=== PATIENT | male | born 1935 | race Caucasian/White ===

== ENCOUNTER 2016-07-09 | Outpatient (CLI) | payer MEDICARE | END 2016-07-09 09:35 | disposition critical access hospital (66) | CPT/HCPCS: A0425; A0429 ==

== ENCOUNTER 2016-07-09 09:43 | Emergency (ER) | payer MEDICARE ==
[2016-07-09] MEDS ORDERED: SODIUM CHLORIDE 0.9% 1,000 ML IV ONE ×2 (10:06)
== END 2016-07-09 15:01 | disposition home or self-care (01) ==
DX: J18.9 Pneumonia, unspecified organism (principal); Z79.899 Other long term (current) drug therapy; Z92.21 Personal history of antineoplastic chemotherapy; C83.30 Diffuse large B-cell lymphoma, unspecified site

== ENCOUNTER 2016-07-09 16:09 | Inpatient (IN) | payer MEDICARE ==
--- NOTE | 2016-07-09 16:15 | ED Physician Documentation ---
PD HPI FEVER - Stated complaint Stated Complaint: SOA - History obtained from History obtained from: Patient, Family - History of Present Illness Timing - onset: Last night Timing duration: Days (1) Timing details: Gradual onset Pain level max: 0 Pain level now: 0 Associated symptoms: Chills Similar symptoms before: Diagnosis (pneumonia) Recently seen: Emergency Dept (seen here earlier today for same.) - Additional information Additional information: states felt more short of breath today after going for his outpatient CT. Family and patient had declined admission earlier today, now agree to admission. Review of Systems Ten Systems: 10 systems reviewed and negative Constitutional: reports: Fever Nose: denies: Rhinorrhea / runny nose, Congestion Throat: denies: Sore throat Cardiac: denies: Chest pain / pressure GI: denies: Abdominal Pain, Nausea, Vomiting, Diarrhea Skin: denies: Rash Musculoskeletal: denies: Neck pain, Back pain Neurologic: denies: Headache PD PAST MEDICAL HISTORY - Past Medical History Past Medical History: Yes Cardiovascular: Atrial fibrillation Respiratory: Other Neuro: None Endocrine/Autoimmune: None GI: None : None HEENT: Chronic hearing loss Psych: None Musculoskeletal: None Derm: None - Past Surgical History Past Surgical History: No General: Colonoscopy HEENT: Cataracts - Present Medications Home Medications: Ambulatory Orders Medication Instructions Recorded Confirmed Cholecalciferol (Vitamin D3) 2,000 unit ORAL DAILY 04/17/14 07/09/16 [Vitamin D] Magnesium 100 mg ORAL BID 04/17/14 07/09/16 Multivitamin [Multivitamins] 1 each PO DAILY 04/17/14 07/09/16 Prednisone 40 mg PO DAILY 05/21/16 07/09/16 Apixaban [Eliquis] 2.5 mg PO BID 07/09/16 07/09/16 - Allergies Allergies/Adverse Reactions: Allergies Allergy/AdvReac Type Severity Reaction Status Date / Time No Known Drug Allergies Allergy Verified 07/09/16 10:03 - Social History Does the pt smoke?: No Smoking Status: Never smoker Does the pt drink ETOH?: Yes Does the pt have substance abuse?: No - Immunizations Immunizations are current?: Yes - POLST Patient has POLST: No PD ED PE NORMAL - Vitals Vital signs reviewed: Yes - General General: Alert and oriented X 3, No acute distress - HEENT HEENT: Moist mucous membranes - Neck Neck: Supple, no meningeal sign - Cardiac Cardiac: Strong equal pulses, Other (tachycardic) - Respiratory Respiratory: No respiratory distress, Other (dimished BS R lung) - Abdomen Abdomen: Soft, Non tender - Back Back: No spinal TTP - Derm Derm: Warm and dry, No rash - Extremities Extremities: No calf tenderness / cord - Neuro Neuro: Alert and oriented X 3 - Psych Psych: Normal mood, Normal affect Results - Vitals Vitals: Vital Signs - 24 hr 07/09/16 07/09/16 07/09/16 16:24 16:40 16:57 Temperature 36.2 C L Heart Rate 149 H 160 H Respiratory 24 30 H Rate Blood Pressure 114/92 H 158/93 H O2 Saturation 83 L 90 L Oxygen O2 Source Non-rebreather mask Oxygen Flow Rate 15 PD MEDICAL DECISION MAKING - ED course Complexity details: reviewed old records, reviewed results, re-evaluated patient , considered differential, d/w patient, d/w family, d/w access consultant ED course: Patient presents to the emergency department with pneumonia and apparent sepsis. He appears significantly worse than he did a few hours ago in the emergency department. He was given IV fluids and supplemental oxygen here. He is normally on 4 L of O2. Consulted the hospitalist and accepts for admission, Dr. Haskins. This document was made in part using voice recognition software. While efforts are made to proofread this document, sound alike and grammatical errors may occur. Departure - Departure Disposition: 66 [facility] DC/Xfer Clinical Impression: Hypoxia Fever Qualifiers: Fever type: unspecified Qualified Code(s): R50.9 - Fever, unspecified Pneumonia Qualifiers: Pneumonia type: due to unspecified organism Laterality: right Lung location: unspecified part of lung Qualified Code(s): J18.9 - Pneumonia, unspecified organism Sepsis Qualifiers: Sepsis type: sepsis due to unspecified organism Qualified Code(s): A41.9 - Sepsis, unspecified organism Condition: Stable Discharge Date/Time: 07/09/16 17:41
[2016-07-09] MEDS ORDERED: SODIUM CHLORIDE 0.9% 1,000 ML IV ONE ×2 (16:16)
[2016-07-09] MEDS ORDERED: LORazepam 2 MG/ML SYRINGE IVP STA (16:39)
[2016-07-09] MEDS ORDERED: LORazepam 2 MG/ML SYRINGE ONE (16:39)
[2016-07-09] MEDS ORDERED: MORPHINE 2 MG/ML SYRINGE ONE (16:52)
[2016-07-09] MEDS ORDERED: MORPHINE 2 MG/ML SYRINGE IVP STA (16:52)
[2016-07-09] MEDS ORDERED: SODIUM CHLORIDE 0.9% 1,000 ML IV SCH (18:00)
[2016-07-09] MEDS ORDERED: ACETAMINOPHEN 325 MG TABLET PO PRN (18:52)
[2016-07-09 18:55] LABS: ABG ANALYSIS TIME 1843; ABG BASE EXCESS 1.5 mmol/L (-2.0-3.0); ABG HCO3 25.8 mmol/L (22.0-26.0); ABG PCO2 40 mmHg (34-45); ABG PH 7.43 (7.35-7.45); ABG PO2 59 mmHg (80-100)
[2016-07-09 18:56] LABS: ABG O2 DEVICE OXYMASK; ABG OXYGEN SATURATION 91 % (94-98); ABG SITE OF DRAW RIGHT RADIAL; ALLEN TEST POSITIVE
[2016-07-09] MEDS ORDERED: VANCOMYCIN WEIGHT BASED (PHA COMPOUNDING) IV SCH (19:00)
[2016-07-09] MEDS ORDERED: FUROSEMIDE 20 MG/2 ML VIAL IVP ONE (19:00)
[2016-07-09] MEDS ORDERED: AZITHROMYCIN INJ 500 MG in SODIUM CHLORIDE 0.9% 250 ML IV SCH (19:00)
[2016-07-09 19:04] LABS: INR 1.3 (0.8-1.2); PT - PROTHROMBIN TIME 14.5 secs (9.9-12.6)
[2016-07-09 19:24] LABS: BASOPHILS % (AUTO) 1.1 %; EOSINOPHILS % (AUTO) 0.3 %; HCT - HEMATOCRIT 33.3 % (42.0-52.0); HGB - HEMOGLOBIN 11.3 g/dL (14.0-18.0); LYMPHOCYTES % (AUTO) 1.3 %; MEAN CORPUSCULAR HEMOGLOBIN 34.7 pg (27.0-31.0); MEAN CORPUSCULAR HGB CONC 34.1 g/dL (32.0-36.0); MONOCYTES % (AUTO) 1.7 %; NEUTROPHILS % (AUTO) 95.6 %; RED BLOOD COUNT 3.26 10^6/uL (4.70-6.10); RED CELL DISTRIBUTION WIDTH 15.9 % (12.0-15.0); UNCORRECTED WHITE BLOOD COUNT 12.5 x10^3/uL; WHITE BLOOD COUNT 12.5 x10^3/uL (4.8-10.8)
[2016-07-09] MEDS: VANCOMYCIN INJ 1 GM in SODIUM CHLORIDE 0.9% 250 ML IV SCH (19:31)
[2016-07-09] MEDS: MORPHINE 2 MG/ML SYRINGE IVP PRN (19:43)
--- NOTE | 2016-07-09 19:57 | XRAY Preliminary Report ---
Exam: XR Chest 1 View IMPRESSION: Worsening left-sided perihilar infiltrate. Otherwise no change. [facility] SITE ID: [id number]
--- NOTE | 2016-07-09 19:59 | XRAY Report ---
EXAM: CHEST RADIOGRAPHY EXAM DATE: 07/09/2016 07:12 PM. CLINICAL HISTORY: Hypoxia. COMPARISON: Today at 1041. TECHNIQUE: 1 view. FINDINGS: Lungs/Pleura: Stable widespread pulmonary infiltrates with pleural effusion on the right . Worsening diffuse left-sided pulmonary infiltrate. No pneumothorax. No left effusion. Mediastinum: Large heart. Other: Stable left subclavian central line. IMPRESSION: Worsening left-sided perihilar infiltrate. Otherwise no change. [facility] Referring Provider Line: [phone] SITE ID: [id number]
[2016-07-09 20:04] LABS: BUN - BLOOD UREA NITROGEN 13 mg/dL (6-20); CALCIUM 7.9 mg/dL (8.5-10.3); CARBON DIOXIDE - CO2 27 mmol/L (21-32); CHLORIDE 98 mmol/L (101-111); CREATININE 0.7 mg/dL (0.6-1.2); GFR - MDRD 108 (>89); GLUCOSE 150 mg/dL (70-100); SODIUM 135 mmol/L (135-145)
[2016-07-09 20:08] LABS: CALCIUM, IONIZED 1.06 mmol/L (1.15-1.33); VBG PH 7.392 (7.31-7.41)
[2016-07-09 20:17] LABS: BAND NEUTROPHILS % (MANUAL) 5 %; BASOPHILS % (MANUAL) 2 %; EOSINOPHILS % (MANUAL) 1 %; LYMPHOCYTES % (MANUAL) 3 %; NEUTROPHILS % (MANUAL) 85 %; TOTAL CELLS COUNTED 100
[2016-07-09 20:22] LABS: NP AUTO DIFFERENTIAL? YES; NP MAN DIFFERENTIAL? NO; PLATELET ESTIMATE, MANUAL NORMAL (130-450,000) (NORMAL)
[2016-07-09] MEDS ORDERED: diltiaZEM INJ 5 MG/ML VIAL IVP SCH (20:51)
[2016-07-09] MEDS ORDERED: SODIUM CHLORIDE 0.9% 500 ML IV ONE (20:51)
[2016-07-09] MEDS: methylPREDNISolone SUCCINATE 40 MG/ML VIAL IVP SCH (21:25)
[2016-07-09] MEDS: FAMOTIDINE 20 MG/50 ML 50 ML IV SCH (22:26)
[2016-07-09] MEDS: PIPERACILLIN/TAZOBACTAM 3.375 GM in SODIUM CHLORIDE 0.9% MINIBAG 100 ML IV SCH (22:26)
[2016-07-09] MEDS: SODIUM CHLORIDE FLUSH 0.9% 10 ML SYRINGE IVP SCH (22:27)
[2016-07-10] MEDS: MORPHINE 2 MG/ML SYRINGE IVP PRN ×6 (00:01→18:11)
[2016-07-10] MEDS: VANCOMYCIN INJ 1 GM in SODIUM CHLORIDE 0.9% 250 ML IV SCH ×3 (02:48→18:11)
[2016-07-10] MEDS: PIPERACILLIN/TAZOBACTAM 3.375 GM in SODIUM CHLORIDE 0.9% MINIBAG 100 ML IV SCH ×4 (04:29→21:27)
--- NOTE | 2016-07-10 04:36 | HISTORY & PHYSICAL EXAMINATION ---
DATE OF ADMISSION: 07/09/2016 CODE STATUS: THE PATIENT IS A DNR STATUS. ALLERGIES: NO KNOWN DRUG ALLERGIES. is by his bedside. Information is obtained from previous H and P and his records and minimally from the patient and , as the patient is an extremist and both and the patient are extremely anxious. HISTORY OF PRESENT ILLNESS: The patient presented into the emergency room earlier today with a history of shortness of air. Onset was acutely yesterday evening, but had had gradual onset for a couple of days. The patient has associated chills. The patient was seen in the emergency room earlier in the day for similar symptoms. He was placed on Levaquin orally and was going to be getting a chest CT as an outpatient and could not tolerate it. As soon as he lied flat, he had acute onset of shortness of air and could not tolerate being flat. He then presented back to the emergency room for similar. 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 The patient has a past medical history of irregular heart rate, shortness of air , chronic prednisone use, pulmonary fibrosis, lymphoma of his right lung. He also has a history of hypertension. FAMILY MEDICAL HISTORY: Positive for lung cancer. EMERGENCY ROOM COURSE: The patient received Ativan in the emergency room, as well as morphine for acute shortness of air. He presented with an O2 saturation of 83%, respiratory rate of 24, and a heart rate of 150 with a temperature of 36.2. He was placed on 6.5 liters and is currently on a 15 OxyMask with O2 saturation of 98% with a respiratory rate of 24. The patient has had a previous tap of his right lung, he states, which did relieve his breathing in the past. A discussion was held with the and the patient, as they have a living well and a POLST was signed. THE PATIENT IS A DNR WITH LIMITED INTERVENTIONS. He is agreeable to have another interventional radiology tap of his lung and being placed on BiPAP if need be. It is not clear whether he would want to be intubated or not. He does not want to have any artificial tube feedings. 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 The patient has been on chronic anticoagulation therapy, also with Eliquis. PAST SURGICAL HISTORY: Not relevant to this current visit. HOME MEDICATIONS 1. Multivitamin 1 daily. 2. Vitamin D 2000 mg daily. 3. Magnesium 200 mg take 100 oral twice a day. 4. Prednisone 40 mg daily. 5. Eliquis 2.5 mg p.o. daily. FAMILY MEDICAL HISTORY: Positive for stomach cancer. REVIEW OF SYSTEMS NEUROLOGICAL: The patient denies any headache. Does complain of feeling dizzy when questioned. CARDIOVASCULAR: Denies any heart palpitations or chest pain. PULMONARY: Acute shortness of air with anxiety. He states he has 2 techniques to try to breathe, which he is attempting. ENT: Denies any sore throat or rhinorrhea. The patient wears bilateral hearing aids. GASTROINTESTINAL: Denies any melena or hematemesis, abdominal discomfort. Denies any back pain or abdominal pain. MUSCULOSKELETAL: Denies any joint aches or pains. GENITOURINARY: Denies any dysuria. LABORATORY: Lactic acid from 5:20 this evening is 3.4. White blood cell count from 10:30 is 7.4, RBC 2.88, hemoglobin 10.2, hematocrit 29.3, MCV is 101.8, MCH is 35.2, MCHC 34.6, RDW is 15.9, platelets 161. Chemistry: Sodium 134, potassium 3.9, chloride 95, carbon dioxide 31, anion gap 8, BUN 11, creatinine 0.6, GFR is 129, glucose 113. Lactic acid 3.4. IMAGING: Chest x-ray from 11:00 this morning, reading: Increased diffuse patchy opacities in the right lung with small right-sided pleural effusion, persistent patchy opacities in the left perihilar station. While this may represent asymmetric pulmonary edema, an infectious process is concerning and cannot be excluded. The patient was evaluated in the emergency room by Dr. Gm Paez and was placed on oxygen and had Ativan and morphine IV and a liter of fluids wide open. In his notation, he states he appeared significantly worse than he did a few hours ago in the emergency department. His is normally on 4 liters of oxygen. The patient received a liter of fluids wide open in the ER. The patient' s blood pressure in the emergency room, the lowest was 114/92 with a heart rate of 150 and O2 saturation of 83%. SOCIAL HISTORY: The patient does not smoke. Denies ever smoking. He does drink alcohol and does not have a history of substance abuse. The patient states he did have 2 flu shots this year. PHYSICAL EXAMINATION: The patient is in moderate distress with accessory muscle use and rigors and tremors. The patient has a nonhumidified nonrebreather mask in use. He is making good eye contact. His face is florid. His skin is damp. He does not have any breath sounds in his right lung and limited breath sounds in his left lung at the mid lobe. Heart sounds are distant and tachycardic. No murmur is appreciated, tachycardic regular rate. The patient has a 1+ radial pulse. The patient has a rotund abdomen, bowel sounds positive. Abdomen is soft , nontender. There is trace pedal edema. Current vital signs as of 1630: Temperature is 36.2, heart rate 150, blood pressure 114/92, O2 saturation 83% on 6.5 liters per record initially in the emergency room. Current, per nurse, 98% on OxyMask at 15%, 24 respiratory rate, heart rate 108, blood pressure is 111/53. ASSESSMENT AND PLAN 1. Right-sided lymphoma. An interventional radiology thoracentesis has been ordered. A stat portable chest x-ray has been ordered. Consideration of a CTA was discussed with Dr. Paez. He considered ordering this, but the patient is unable to lie flat for this at this time. 2. Hypoxia, extreme. Discussion was held with the and the patient about the need for BiPAP should that occur. He agrees to BiPAP. He does not agree to intubation at this time, but may consider it if needed if he was unconscious. 3. Elevated lactic acid, history of fever in the past 24 hours. Pneumonia: CAP. With Sepsis. The patient will be started on vancomycin and Zosyn. He did have a dose of Levaquin in the emergency room. He will be continued on Solu-Medrol IV at 40. He will be given a dose of Lasix 40 mg IV now. His IV has been saline locked. He is to have a Leyva catheter. He has strict I and O. He will have ABGs, Xopenex nebs, and a repeat single view chest x-ray, as well as repeat CBC and BMP. 4. Atrial fibrillation with RVR up to 170's. The patient will be on Lovenox, will have an INR. His Eliquis will be held. He will also be placed on famotidine 20 IV b.i.d. Consideration of IV Diltiazem or metoprolol was discussed with Dr. Haskins. Response to lasix as well as labs, CXR are pending. Mary Armstrong MD to follow up and consider treatment for RVR. Consider: Possible PE, Pulm. edema, CHF. The patient will be closely monitored. The patient was discussed with Dr. Dionicio Haskins who agrees with the plan of care. The patient and his both do understand that he is in a critical situation and that we will work to try to make him feel more comfortable. He has morphine ordered q.2h. p.r.n. for anxiety. In the event the patient stabilizes in the morning, an echocardiogram will also be repeated. Vital signs are currently q.1h. until stable. A discussion was held in regard of possible need for intubation: history of pulmonary fibrosis, prognosis. Patient and family do not desire this at this time. JOB #: [id number] EXT JOB #:[id number] HERNAN
[2016-07-10] MEDS: SODIUM CHLORIDE FLUSH 0.9% 10 ML SYRINGE IVP SCH ×2 (06:14→16:25)
[2016-07-10] MEDS ORDERED: MAGNESIUM OXIDE 400 MG TABLET PO SCH (08:00)
--- NOTE | 2016-07-10 08:05 | PROVIDER PROGRESS NOTE ---
Hospitalist Cross-cover Note - Cross-Cover Note Cross-Cover Note: 07/09/15 20:00-22:00 At change of shift 1900 patient presented to me as hx of lymphoma and now with pneumonia seen as white out of right lung. Couldn't do the CT of chest since he can't lay flat. Admitted and started on abx, given lasix since BNP high and hypoxic with tachypnea. Once on the floor, had brisk urine output but not improving with sob. RN called me at 20:00 since he was now severely tachypneic , couldn't breath and pulse rate was 200 (known afib on anticoagulation). From 19:00 to now getting more and more sob. On exam, BP intially stable. Fast irregular heart rate. Guppy breathing on oxymask. 15 liters. couldn't lay flat on bed. Lungs with diffuse crackles. using accessory muscles to breath. BP was starting to drop from 130's systolic to high 90's. given 500 cc fluid bolus (since may have been overdiuresed) and then given diltiazem. Transferred to ICU from the floor. Once in ICU, rate down to 90's. Over the next 2 hours, serial exams done. Able to recline angle of bed more. No use of accessory muscles. Resp rate started at 30 and down to 22. Staying on oxymask 15 liters. Heart rate down to 102-110. still afib. Lungs still with crackles but less more scant sound from first time I examined him. CXR with worsening left perhilar infiltrate. A/P acute resp failure with hypoxia from afib with RVR, pneumonia, and hx of interstial lung fibrosis. Long talk with family. He is DNR and after consideration, DNI. Over 30 minutes of face to face time spent in direct patient care with over 2 hours of repeat exams and discussion witwh family.
[2016-07-10] MEDS: CHOLECALCIFEROL 1,000 UNIT TABLET PO SCH (08:26)
[2016-07-10] MEDS: FAMOTIDINE 20 MG/50 ML 50 ML IV SCH ×2 (08:27→20:27)
[2016-07-10] MEDS: ENOXAPARIN 40 MG/0.4 ML SYRINGE SUBQ SCH (08:27)
[2016-07-10] MEDS: MULTIVITAMIN TABLET PO SCH (08:27)
[2016-07-10] MEDS: POLYETHYLENE GLYCOL 3350 17 GM PACKET PO SCH (08:27)
[2016-07-10] MEDS: methylPREDNISolone SUCCINATE 40 MG/ML VIAL IVP SCH ×2 (09:00→20:27)
[2016-07-10 09:04] LABS: BILIRUBIN,TOTAL 0.9 mg/dL (0.2-1.0); BUN - BLOOD UREA NITROGEN 9 mg/dL (6-20); CALCIUM 8.1 mg/dL (8.5-10.3); CARBON DIOXIDE - CO2 27 mmol/L (21-32); CHLORIDE 98 mmol/L (101-111); CREATININE 0.6 mg/dL (0.6-1.2); GFR - MDRD 129 (>89); GLUCOSE 139 mg/dL (70-100); MAGNESIUM 1.8 mg/dL (1.7-2.8); PHOSPHORUS 3.2 mg/dL (2.5-4.6); POTASSIUM 3.9 mmol/L (3.5-5.0); SODIUM 134 mmol/L (135-145); TOTAL PROTEIN 5.7 g/dL (6.7-8.2)
[2016-07-10 09:17] LABS: CALCIUM, IONIZED 1.08 mmol/L (1.15-1.33); VBG PH 7.435 (7.31-7.41)
[2016-07-10] MEDS ORDERED: LORazepam 0.5 MG TABLET PO PRN (14:21)
[2016-07-10] MEDS ORDERED: diltiaZEM INJ 5 MG/ML VIAL IVP ONE (17:30)
[2016-07-10] MEDS ORDERED: guaiFENesin 600 MG TABLET PO ONE (17:30)
[2016-07-10] MEDS ORDERED: diltiaZEM 30 MG TABLET PO ONE (17:45)
[2016-07-10] MEDS ORDERED: cefTRIAXone 2 GM in SODIUM CHLORIDE 0.9% MINIBAG 100 ML IV SCH (18:00)
[2016-07-10] MEDS: guaiFENesin 600 MG TABLET PO SCH (21:01)
[2016-07-10] MEDS ORDERED: SODIUM CHLORIDE 0.9% 500 ML IV ONE (21:13)
[2016-07-10] MEDS ORDERED: SODIUM CHLORIDE INHALATION 3 ML NEB ONE (22:05)
[2016-07-10] MEDS: LEVALBUTEROL 1.25 MG INH PRN (22:10)
[2016-07-11] MEDS: METOPROLOL 5 MG/5 ML VIAL IVP PRN ×2 (00:01→20:53)
[2016-07-11] MEDS: LORazepam 2 MG/ML SYRINGE IVP PRN ×2 (00:01→02:05)
[2016-07-11] MEDS: APIXABAN 2.5 MG PO SCH ×2 (00:05→10:31)
[2016-07-11] MEDS: SODIUM CHLORIDE FLUSH 0.9% 10 ML SYRINGE IVP SCH ×4 (00:06→21:50)
[2016-07-11] MEDS ORDERED: HALOPERIDOL 5 MG/ML VIAL IM ONE ×2 (00:57→07:46)
[2016-07-11 01:42] LABS: ABG BASE EXCESS -8.9 mmol/L (-2.0-3.0); ABG HCO3 20.8 mmol/L (22.0-26.0); ABG PO2 62 mmHg (80-100); ABG SITE OF DRAW RIGHT RADIAL; ABG TCO2 22.8 MMOL/L (21.0-29.0); ALLEN TEST POSITIVE
[2016-07-11 01:43] LABS: ABG O2 DEVICE NON REBREATHER MASK
[2016-07-11 01:45] LABS: ABG OXYGEN SATURATION 84 % (94-98); ABG PCO2 65 mmHg (34-45); ABG PH 7.13 (7.35-7.45)
--- NOTE | 2016-07-11 01:47 | XRAY Preliminary Report ---
Exam: XR Chest 1 View IMPRESSION: Severe bilateral airspace opacities have progressed from compared the prior exam. Suspect increasing right effusion as well. [facility] SITE ID: [id number]
--- NOTE | 2016-07-11 01:49 | XRAY Report ---
EXAM: CHEST RADIOGRAPHY EXAM DATE: 07/11/2016 01:25 AM. CLINICAL HISTORY: Sudden shortness of breath, and hypoxia. COMPARISON: 07/09/2016, CT 05/14/2016. TECHNIQUE: 1 view. FINDINGS: Lungs/Pleura: Severe bilateral airspace opacities have progressed from compared the prior exam. Suspe ct increasing right effusion as well. No gross pneumothorax. Mediastinum: Grossly stable. No me stone shift. Heart obscured partially Other: None. IMPRESSION: Severe bilateral airspace opacities have progressed from compared the prior exam. Suspect increasing right effusion as well. [facility] Referring Provider Line: [phone] SITE ID: [id number]
[2016-07-11 02:50] LABS: BASOPHILS % (AUTO) 0.1 %; EOSINOPHILS % (AUTO) 0.3 %; HCT - HEMATOCRIT 29.8 % (42.0-52.0); LYMPHOCYTES # (AUTO) 0.2 10^3/uL (1.5-3.5); LYMPHOCYTES % (AUTO) 1.6 %; MEAN CORPUSCULAR HEMOGLOBIN 35.4 pg (27.0-31.0); MEAN CORPUSCULAR HGB CONC 33.6 g/dL (32.0-36.0); MEAN CORPUSCULAR VOLUME 105.2 fL (80.0-94.0); MEAN PLATELET VOLUME 9.5 fL (7.4-11.4); MONOCYTES # (AUTO) 0.5 10^3/uL (0.0-1.0); MONOCYTES % (AUTO) 3.8 %; NEUTROPHILS # (AUTO) 13.4 10^3/uL (1.5-6.6); NEUTROPHILS % (AUTO) 94.2 %; NUCLEATED RED BLOOD CELLS AUTO 0.1 /100WBC; RED BLOOD COUNT 2.84 10^6/uL (4.70-6.10); UNCORRECTED WHITE BLOOD COUNT 14.3 x10^3/uL; WHITE BLOOD COUNT 14.3 x10^3/uL (4.8-10.8)
[2016-07-11 02:55] LABS: MAGNESIUM 2.2 mg/dL (1.7-2.8); PHOSPHORUS 5.1 mg/dL (2.5-4.6)
[2016-07-11] MEDS: MORPHINE 2 MG/ML SYRINGE IVP PRN ×2 (03:13→06:23)
[2016-07-11 03:19] LABS: ALBUMIN/GLOBULIN RATIO 0.9 (1.0-2.2); BILIRUBIN,TOTAL 0.6 mg/dL (0.2-1.0); CALCIUM 8.4 mg/dL (8.5-10.3); CREATININE 0.9 mg/dL (0.6-1.2); POTASSIUM 4.3 mmol/L (3.5-5.0); TOTAL PROTEIN 6.3 g/dL (6.7-8.2)
[2016-07-11] MEDS: VANCOMYCIN INJ 1 GM in SODIUM CHLORIDE 0.9% 250 ML IV SCH ×3 (04:00→21:50)
[2016-07-11] MEDS: PIPERACILLIN/TAZOBACTAM 3.375 GM in SODIUM CHLORIDE 0.9% MINIBAG 100 ML IV SCH ×5 (04:06→21:27)
[2016-07-11 06:32] LABS: VBG BASE EXCESS 0.9 mmol/L (-2 - +2); VBG OXYGEN SATURATION 95.7 % (60-80); VBG PH 7.328 (7.31-7.41); VBG TOTAL CO2 29.1 mmol/L (24-29)
[2016-07-11 06:38] LABS: CALCIUM 8.5 mg/dL (8.5-10.3); CREATININE 0.8 mg/dL (0.6-1.2); POTASSIUM 3.9 mmol/L (3.5-5.0)
[2016-07-11] MEDS: MORPHINE 2 MG/ML SYRINGE IVP SCH ×8 (08:00→23:55)
[2016-07-11] MEDS ORDERED: HALOPERIDOL 5 MG/ML VIAL IVP ONE (08:10)
[2016-07-11] MEDS ORDERED: MORPHINE 2 MG/ML SYRINGE IVP STA (08:10)
[2016-07-11] MEDS ORDERED: FUROSEMIDE 40 MG/4 ML VIAL IVP STA (08:11)
[2016-07-11] MEDS: DIGOXIN 500 MCG/2 ML AMP IVP SCH (08:53)
[2016-07-11] MEDS: ENOXAPARIN 40 MG/0.4 ML SYRINGE SUBQ SCH (08:54)
[2016-07-11] MEDS: PANTOPRAZOLE 40 MG VIAL IVP SCH (08:54)
[2016-07-11] MEDS ORDERED: predniSONE 20 MG TABLET PO SCH (09:00)
[2016-07-11] MEDS: methylPREDNISolone SUCCINATE 40 MG/ML VIAL IVP SCH ×3 (09:06→20:17)
[2016-07-11] MEDS: CHLORHEXIDINE GLUCONATE 15 ML UDC PO SCH ×2 (10:28→20:17)
[2016-07-11] MEDS: POLYETHYLENE GLYCOL 3350 17 GM PACKET PO SCH (10:29)
[2016-07-11] MEDS: diltiaZEM CD 120 MG CAPSULE PO SCH (10:29)
[2016-07-11] MEDS: guaiFENesin 600 MG TABLET PO SCH ×2 (10:29→20:33)
[2016-07-11] MEDS: CHOLECALCIFEROL 1,000 UNIT TABLET PO SCH (10:29)
[2016-07-11] MEDS: SODIUM CHLORIDE FLUSH 0.9% 10 ML SYRINGE IVP PRN (11:20)
[2016-07-11 11:43] LABS: ABG ANALYSIS TIME 1135; ABG BASE EXCESS 6.5 mmol/L (-2.0-3.0); ABG HCO3 31.9 mmol/L (22.0-26.0); ABG PCO2 51 mmHg (34-45); ABG PH 7.42 (7.35-7.45); ABG TCO2 33.5 MMOL/L (21.0-29.0)
[2016-07-11 11:44] LABS: ABG EXPIRATORY POS AIRWAY P 4 cmH2O; ABG INSPIRATORY POS AIRWAY P 12 cmH2O; ABG MODE OF VENTILATION 5/T; ABG O2 DEVICE BiPAP; ABG OXYGEN SATURATION 99 % (94-98); ABG PRESSURE SUPPORT VENT 8 cmH2O; ABG RESPIRATORY RATE 12 b/min; ABG SATURATION PULSE OXIMETRY% 100 %; ABG SITE OF DRAW RIGHT RADIAL; ALLEN TEST POSITIVE
[2016-07-11 11:45] LABS: ABG PO2 202 mmHg (80-100)
[2016-07-11] MEDS: FAMOTIDINE 20 MG/50 ML 50 ML IV SCH (11:49)
[2016-07-11] MEDS: HALOPERIDOL 5 MG/ML VIAL IVP PRN ×3 (14:06→22:28)
[2016-07-11] MEDS ORDERED: diltiaZEM INJ 5 MG/ML VIAL ONE (18:47)
[2016-07-11] MEDS ORDERED: diltiaZEM INJ 5 MG/ML VIAL IVP ONE (19:16)
[2016-07-11] MEDS ORDERED: MAGNESIUM OXIDE 400 MG TABLET PO SCH (21:00)
[2016-07-11] MEDS ORDERED: POTASSIUM PHOSPHATE 15 MMOL in SODIUM CHLORIDE 0.9% 250 ML IV ONE (21:24)
[2016-07-11] MEDS ORDERED: MAGNESIUM SULFATE 2 GRAM 50 ML IV ONE (21:24)
[2016-07-11] MEDS ORDERED: POTASSIUM PHOSPHATE 21 MMOL in SODIUM CHLORIDE 0.9% 250 ML IV ONE (21:24)
[2016-07-11] MEDS ORDERED: guaiFENesin 600 MG TABLET PO PRN (21:30)
--- NOTE | 2016-07-11 21:43 | PROVIDER PROGRESS NOTE ---
Subjective - Prog Note Date Prog Note Date: 07/11/16 Prog Note Time: 21:42 - Subjective Pt reports feeling: Improved Subjective: last night was a rough night. after 2 episodes of sob, the final episode resulted in BiPAP, ABG documenting acute respiratory failure with hypoxemia and hypercapnea, worsening infiltrate on CXR. At one point, I felt that was imminent and family was firm on DNR/DNI. CXR was much much worse. The mckinney was sedating with haldol and morphine. once that was done, able to stop struggling and repeat labs showed improvement. today the same holds. as long as quiet and sedated, maintains O2 sat. If BiPap comes off for mouth care or for oral meds, desats to 80's and afib rate becomes uncontrolled. But stable if on BiPAP and vitals remain stable with stable UOP. Family feels ativan causes more agitation and has asked it be stopped. Current Medications - Current Medications Current Medications: Active Medications Chlorhexidine Gluconate (Peridex) 15 ml PO BID [facility] Last Admin: 07/11/16 20:17 Dose: 15 ml Cholecalciferol (Vitamin D3) 2,000 unit PO DAILY [facility] Last Admin: 07/11/16 10:29 Dose: Not Given Digoxin (Lanoxin Inj) 250 mcg IVP DAILY [facility] Last Admin: 07/11/16 08:53 Dose: 250 mcg Diltiazem HCl (Cardizem Cd) 120 mg PO DAILY [facility] Last Admin: 07/11/16 10:29 Dose: Not Given Enoxaparin Sodium (Lovenox) 40 mg SUBQ DAILY [facility] Last Admin: 07/11/16 08:54 Dose: 40 mg Guaifenesin (Mucinex) 600 mg PO BID PRN PRN Reason: Cold Symptons Haloperidol (Haldol Inj) 1 mg IVP Q4H PRN PRN Reason: Agitation Last Admin: 07/11/16 18:40 Dose: 1 mg Piperacillin Sod/Tazobactam (Sod 3.375 gm/ Sodium Chloride) 100 mls @ 200 mls/ hr IV Q6H [facility] Last Admin: 07/11/16 21:27 Dose: 200 mls/hr Vancomycin HCl 1 gm/ Sodium (Chloride) 250 mls @ 167 mls/hr IV Q8H [facility] Last Admin: 07/11/16 21:50 Dose: 167 mls/hr Magnesium Sulfate (Magnesium Sulfate) 50 mls @ 50 mls/hr IV ONCE ONE Stop: 07/11/16 22:23 Levalbuterol HCl (Xopenex) 1.25 mg INH Q4H PRN PRN Reason: Wheezing Last Admin: 07/10/16 22:10 Dose: 1.25 mg Methylprednisolone (Solu-Medrol (40mg Vial)) 80 mg IVP Q6H [facility] Last Admin: 07/11/16 20:17 Dose: 80 mg Metoprolol Tartrate (Lopressor Inj) 5 mg IVP Q6HR PRN PRN Reason: Tachycardia Last Admin: 07/11/16 20:53 Dose: 5 mg Morphine Sulfate (Morphine) 2 mg IVP Q2HR PRN PRN Reason: Pain 8 to 10 Last Admin: 07/11/16 06:23 Dose: 2 mg Morphine Sulfate (Morphine) 2 mg IVP Q2HR [facility] Last Admin: 07/11/16 21:50 Dose: 2 mg Multivitamins (Theragran) 1 tab PO DAILYWM [facility] Last Admin: 07/10/16 08:27 Dose: 1 tab Pantoprazole Sodium (Protonix) 40 mg IVP QDAC [facility] Last Admin: 07/11/16 08:54 Dose: 40 mg Polyethylene Glycol (Miralax) 17 gm PO DAILY [facility] Last Admin: 07/11/16 10:29 Dose: Not Given Sodium Chloride (Normal Saline Flush 0.9%) 10 ml IVP PRN PRN PRN Reason: NEEDED PER PROVIDER ORDERS Last Admin: 07/11/16 11:20 Dose: 20 ml Sodium Chloride (Normal Saline Flush 0.9%) 10 ml IVP Q8HR [facility] Last Admin: 07/11/16 21:50 Dose: 10 ml Multivitamin [Multivitamins] 1 each PO DAILY 04/17/14 Apixaban [Eliquis] 2.5 mg PO BID 07/09/16 Docusate Sodium 250Mg Capsule [Colace 250Mg Capsule] 250 mg PO BID 07/10/16 Lorazepam 1.25 mg PO QPM 07/10/16 Magnesium Oxide [Mag Ox] 400 mg PO QPM 07/10/16 Prednisone 20 mg PO DAILY 07/10/16 diltiaZEM CD [Cardizem Cd] 120 mg PO DAILY 07/10/16 Objective - Vital Signs/Intake & Output Reviewed Vital Signs: Yes Vital Signs: Vital Signs Temp Pulse Pulse Resp BP BP Pulse Ox 07/11/16 21:30 81 07/11/16 21:23 114/63 07/11/16 21:00 125 H 27 H 116/63 94 07/11/16 20:53 154/68 H 07/11/16 20:00 36.6 C 132 H 32 H 163/83 H 94 07/11/16 19:50 131 H 07/11/16 19:22 160/63 H 07/11/16 19:00 124 H 33 H 160/63 H 98 07/11/16 18:00 130 H 26 H 148/82 H 98 Intake & Output: Intake & Output 07/08/16 07/09/16 07/10/16 07/11/16 23:59 23:59 23:59 23:59 Intake Total 1100 1695 240 Output Total 1125 1740 3000 Balance -32 -45 -2622 - Objective General Appearance: positive: No acute distress, Lethargic (from sedation) Eyes Bilateral: positive: PERRL, EOMI ENT: positive: Dry mucous membranes (from the mask and BiPAP) Neck: positive: Thyroid nml, No JVD. negative: Stiff neck, Carotid bruit Respiratory: positive: Chest non-tender, Rales (at bases), Other (has good air movement. rare scattered wheeze. uses abd muscles when tachypneic and has intermittent respiratory distress thru the day with sitting, rolling in bed.) Cardiovascular: positive: Irregularly irregular, Tachycardia (occasional to 140' s) Abdomen: positive: Non-tender, No organomegaly, Nml bowel sounds, No distention , Other (has diastasis or large ventral hernia.) Skin: positive: Color nml, No rash, Warm Extremities: positive: No pedal edema Neurologic/Psychiatric: positive: Disoriented to person, Disoriented to place, Disoriented to time, Other (intermittent agitation requiring restraints. he will pull of mask,try to pull IV or vu, try to sit up adn get out of bed if not in restraints. can't be prompted or cued when his panic from sob sets in) - Lab Results Fish Bones: 07/11/16 02:38 07/11/16 06:18 Other Labs: Lab Results x24hrs 07/11/16 07/11/16 07/11/16 Range/Units 11:35 11:00 06:18 WBC (4.8-10.8) x10^3/uL RBC (4.70-6.10) 10^6/uL Hgb (14.0-18.0) g/dL Hct (42.0-52.0) % MCV (80.0-94.0) fL MCH (27.0-31.0) pg MCHC (32.0-36.0) g/dL RDW (12.0-15.0) % Plt Count (130-450) 10^3/uL MPV (7.4-11.4) fL Neut # (1.5-6.6) 10^3/uL Lymph # (1.5-3.5) 10^3/uL [place] # (0.0-1.0) 10^3/uL Eos # (0.0-0.7) 10^3/uL Baso # (0.0-0.1) 10^3/uL Absolute Nucleated RBC x10^3/uL Nucleated RBCs /100WBC Bld Gas Analysis Time 1135 Sample Site RIGHT RADIAL ABG pH 7.42 (7.35-7.45) ABG pCO2 51 H (34-45) mmHg ABG pO2 202 H* (80-100) mmHg ABG HCO3 31.9 H (22.0-26.0) mmol/L ABG Total CO2 33.5 H (21.0-29.0) MMOL/L ABG O2 Saturation 99 H (94-98) % ABG Oximetry Spot Check 100 % ABG Base Excess 6.5 H (-2.0-3.0) mmol/L Luís Test POSITIVE VBG pH 7.328 (7.31-7.41) VBG pCO2 53.5 H (41-51) mmHg VBG pO2 84.3 H (25-47) mmHg VBG HCO3 27.4 (23-28) mmol/L VBG Total CO2 29.1 H (24-29) mmol/L VBG O2 Saturation 95.7 H (60-80) % VBG Base Excess 0.9 (-2 - +2) mmol/L Respiration Rate 12 b/min O2 Delivery Device BiPAP O2 Liters/Min LPM Vent Mode 5/T FiO2 100.00 Pressure Support Vent 8 cmH2O EPAP 4 cmH2O IPAP 12 cmH2O Sodium (135-145) mmol/L Potassium (3.5-5.0) mmol/L Chloride (101-111) mmol/L Carbon Dioxide (21-32) mmol/L Anion Gap (6-13) BUN (6-20) mg/dL Creatinine (0.6-1.2) mg/dL Estimated GFR (MDRD) (>89) Glucose (70-100) mg/dL Lactic Acid (0.5-2.2) mmol/L Calcium (8.5-10.3) mg/dL Phosphorus (2.5-4.6) mg/dL Magnesium (1.7-2.8) mg/dL Total Bilirubin (0.2-1.0) mg/dL AST (10-42) IU/L ALT (10-60) IU/L Alkaline Phosphatase (42-121) IU/L Total Protein (6.7-8.2) g/dL Albumin (3.2-5.5) g/dL Globulin (2.1-4.2) g/dL Albumin/Globulin Ratio (1.0-2.2) Last Dose Date 07/10/16 Last Dose Time 1811 Vancomycin Trough (5.0-15.0) ug/mL Random Vancomycin 8.8 ug/mL 07/11/16 07/11/16 07/11/16 Range/Units 06:18 06:18 02:38 WBC (4.8-10.8) x10^3/uL RBC (4.70-6.10) 10^6/uL Hgb (14.0-18.0) g/dL Hct (42.0-52.0) % MCV (80.0-94.0) fL MCH (27.0-31.0) pg MCHC (32.0-36.0) g/dL RDW (12.0-15.0) % Plt Count (130-450) 10^3/uL MPV (7.4-11.4) fL Neut # (1.5-6.6) 10^3/uL Lymph # (1.5-3.5) 10^3/uL [place] # (0.0-1.0) 10^3/uL Eos # (0.0-0.7) 10^3/uL Baso # (0.0-0.1) 10^3/uL Absolute Nucleated RBC x10^3/uL Nucleated RBCs /100WBC Bld Gas Analysis Time Sample Site ABG pH (7.35-7.45) ABG pCO2 (34-45) mmHg ABG pO2 (80-100) mmHg ABG HCO3 (22.0-26.0) mmol/L ABG Total CO2 (21.0-29.0) MMOL/L ABG O2 Saturation (94-98) % ABG Oximetry Spot Check % ABG Base Excess (-2.0-3.0) mmol/L Luís Test VBG pH (7.31-7.41) VBG pCO2 (41-51) mmHg VBG pO2 (25-47) mmHg VBG HCO3 (23-28) mmol/L VBG Total CO2 (24-29) mmol/L VBG O2 Saturation (60-80) % VBG Base Excess (-2 - +2) mmol/L Respiration Rate b/min O2 Delivery Device O2 Liters/Min LPM Vent Mode FiO2 Pressure Support Vent cmH2O EPAP cmH2O IPAP cmH2O Sodium 138 (135-145) mmol/L Potassium 3.9 (3.5-5.0) mmol/L Chloride 101 (101-111) mmol/L Carbon Dioxide 28 (21-32) mmol/L Anion Gap 9.0 (6-13) BUN 13 (6-20) mg/dL Creatinine 0.8 (0.6-1.2) mg/dL Estimated GFR (MDRD) 93 (>89) Glucose 138 H (70-100) mg/dL Lactic Acid 3.1 H* 7.9 H* (0.5-2.2) mmol/L Calcium 8.5 (8.5-10.3) mg/dL Phosphorus (2.5-4.6) mg/dL Magnesium (1.7-2.8) mg/dL Total Bilirubin (0.2-1.0) mg/dL AST (10-42) IU/L ALT (10-60) IU/L Alkaline Phosphatase (42-121) IU/L Total Protein (6.7-8.2) g/dL Albumin (3.2-5.5) g/dL Globulin (2.1-4.2) g/dL Albumin/Globulin Ratio (1.0-2.2) Last Dose Date Last Dose Time Vancomycin Trough (5.0-15.0) ug/mL Random Vancomycin ug/mL 07/11/16 07/11/16 07/11/16 Range/Units 02:38 02:38 02:38 WBC 14.3 H (4.8-10.8) x10^3/uL RBC 2.84 L (4.70-6.10) 10^6/uL Hgb 10.0 L (14.0-18.0) g/dL Hct 29.8 L (42.0-52.0) % MCV 105.2 H (80.0-94.0) fL MCH 35.4 H (27.0-31.0) pg MCHC 33.6 (32.0-36.0) g/dL RDW 16.0 H (12.0-15.0) % Plt Count 191 (130-450) 10^3/uL MPV 9.5 (7.4-11.4) fL Neut # 13.4 H (1.5-6.6) 10^3/uL Lymph # 0.2 L (1.5-3.5) 10^3/uL [place] # 0.5 (0.0-1.0) 10^3/uL Eos # 0.0 (0.0-0.7) 10^3/uL Baso # 0.0 (0.0-0.1) 10^3/uL Absolute Nucleated RBC 0.01 x10^3/uL Nucleated RBCs 0.1 /100WBC Bld Gas Analysis Time Sample Site ABG pH (7.35-7.45) ABG pCO2 (34-45) mmHg ABG pO2 (80-100) mmHg ABG HCO3 (22.0-26.0) mmol/L ABG Total CO2 (21.0-29.0) MMOL/L ABG O2 Saturation (94-98) % ABG Oximetry Spot Check % ABG Base Excess (-2.0-3.0) mmol/L Luís Test VBG pH (7.31-7.41) VBG pCO2 (41-51) mmHg VBG pO2 (25-47) mmHg VBG HCO3 (23-28) mmol/L VBG Total CO2 (24-29) mmol/L VBG O2 Saturation (60-80) % VBG Base Excess (-2 - +2) mmol/L Respiration Rate b/min O2 Delivery Device O2 Liters/Min LPM Vent Mode FiO2 Pressure Support Vent cmH2O EPAP cmH2O IPAP cmH2O Sodium 136 (135-145) mmol/L Potassium 4.3 (3.5-5.0) mmol/L Chloride 99 L (101-111) mmol/L Carbon Dioxide 23 (21-32) mmol/L Anion Gap 14.0 H (6-13) BUN 12 (6-20) mg/dL Creatinine 0.9 (0.6-1.2) mg/dL Estimated GFR (MDRD) 81 L (>89) Glucose 253 H (70-100) mg/dL Lactic Acid (0.5-2.2) mmol/L Calcium 8.4 L (8.5-10.3) mg/dL Phosphorus 5.1 H (2.5-4.6) mg/dL Magnesium 2.2 (1.7-2.8) mg/dL Total Bilirubin 0.6 (0.2-1.0) mg/dL AST 50 H (10-42) IU/L ALT 34 (10-60) IU/L Alkaline Phosphatase 107 (42-121) IU/L Total Protein 6.3 L (6.7-8.2) g/dL Albumin 3.0 L (3.2-5.5) g/dL Globulin 3.3 (2.1-4.2) g/dL Albumin/Globulin Ratio 0.9 L (1.0-2.2) Last Dose Date Last Dose Time Vancomycin Trough (5.0-15.0) ug/mL Random Vancomycin ug/mL 07/11/16 07/10/16 Range/Units 01:25 18:45 WBC (4.8-10.8) x10^3/uL RBC (4.70-6.10) 10^6/uL Hgb (14.0-18.0) g/dL Hct (42.0-52.0) % MCV (80.0-94.0) fL MCH (27.0-31.0) pg MCHC (32.0-36.0) g/dL RDW (12.0-15.0) % Plt Count (130-450) 10^3/uL MPV (7.4-11.4) fL Neut # (1.5-6.6) 10^3/uL Lymph # (1.5-3.5) 10^3/uL [place] # (0.0-1.0) 10^3/uL Eos # (0.0-0.7) 10^3/uL Baso # (0.0-0.1) 10^3/uL Absolute Nucleated RBC x10^3/uL Nucleated RBCs /100WBC Bld Gas Analysis Time 0140 Sample Site RIGHT RADIAL ABG pH 7.13 L* (7.35-7.45) ABG pCO2 65 H* (34-45) mmHg ABG pO2 62 L (80-100) mmHg ABG HCO3 20.8 L (22.0-26.0) mmol/L ABG Total CO2 22.8 (21.0-29.0) MMOL/L ABG O2 Saturation 84 L* (94-98) % ABG Oximetry Spot Check % ABG Base Excess -8.9 L (-2.0-3.0) mmol/L Luís Test POSITIVE VBG pH (7.31-7.41) VBG pCO2 (41-51) mmHg VBG pO2 (25-47) mmHg VBG HCO3 (23-28) mmol/L VBG Total CO2 (24-29) mmol/L VBG O2 Saturation (60-80) % VBG Base Excess (-2 - +2) mmol/L Respiration Rate b/min O2 Delivery Device NON REBREATHER MASK O2 Liters/Min 15.00 LPM Vent Mode FiO2 Pressure Support Vent cmH2O EPAP cmH2O IPAP cmH2O Sodium (135-145) mmol/L Potassium (3.5-5.0) mmol/L Chloride (101-111) mmol/L Carbon Dioxide (21-32) mmol/L Anion Gap (6-13) BUN (6-20) mg/dL Creatinine (0.6-1.2) mg/dL Estimated GFR (MDRD) (>89) Glucose (70-100) mg/dL Lactic Acid (0.5-2.2) mmol/L Calcium (8.5-10.3) mg/dL Phosphorus (2.5-4.6) mg/dL Magnesium (1.7-2.8) mg/dL Total Bilirubin (0.2-1.0) mg/dL AST (10-42) IU/L ALT (10-60) IU/L Alkaline Phosphatase (42-121) IU/L Total Protein (6.7-8.2) g/dL Albumin (3.2-5.5) g/dL Globulin (2.1-4.2) g/dL Albumin/Globulin Ratio (1.0-2.2) Last Dose Date 07/10/16 Last Dose Time 181 Vancomycin Trough 37.7 H* (5.0-15.0) ug/mL Random Vancomycin ug/mL Assessment/Plan - Problem List (1) Acute respiratory failure with hypoxia and hypercapnia Impression: this is in the face of a tamy out right lung and newly tamy out left lung. Possible ARDS but can't say without pulm pressures to measure. Tenuously stable on BiPAP. DNI. Failure is from pneumonia superimposed on interstitial lung disease disorder that could be stand alone or from lymphoma. Continue tx for # 2. (2) Sepsis Impression: from pneumonia. causing resp failure. still with WBC, tachy, hypoxia. BP stable. Lactic acid crept up to 7.9 early this am and down to 3 after aggressive pulmonary treatment. Qualifiers: Sepsis type: sepsis due to unspecified organism Qualified Code(s): A41.9 - Sepsis, unspecified organism (3) Pneumonia Impression: CAP in a patient with hx of right lung lymphoma, interstitial lung disease. On broad spectrum abx. Day 2 planned abx with zosyn and vancomycin. blood cultures are negative. MRSA swab neg. Qualifiers: Pneumonia type: due to unspecified organism Laterality: bilateral Lung location: unspecified part of lung Qualified Code(s): J18.9 - Pneumonia, unspecified organism (4) Atrial fibrillation with rapid ventricular response Impression: RVR comes and goes depending on fluid status. If gets diuresed for CHF, afib gets worse. If gets hypoxic afib gets worse. We are using prn diltiazem and lopressor to control rate and have also added digoxin. (5) Delirium due to another medical condition, acute, hyperactive Impression: from #1. He completely changed in the hasher operator hours as the respiratory failure worsened. we are using restraints. haldol. Morphine. family has asked us to avoid ativan. (6) Pleural effusion associated with pulmonary infection Impression: unable to do CT since he couldn't lay flat for study. CXR shows worsening effusion. In the face of acute respiratory failure and his delirium, thoracentesis held off on. Once he can be better controlled to safely do a thoracentesis, will reorder. (7) Large cell lymphoma, extranodal and solid organ sites Impression: seems to be confined to lungs and mediastianl nodes. s/p 2 cycles of split dose RCHOP with Day 1 rutuxan, prednisone. last cycle was 06/18 and split dose would have been done 07/03 but skipped? pleural effusion could be from lymphoma.
[2016-07-11] MEDS ORDERED: POTASSIUM CHLOR 10 MEQ/100 ML 100 ML IV SCH ×3 (22:00)
[2016-07-11] MEDS ORDERED: POTASSIUM CHLOR 20 MEQ/100 ML 100 ML IV SCH (22:00)
[2016-07-11] MEDS ORDERED: SODIUM CHLORIDE INHALATION 3 ML NEB ONE (22:41)
[2016-07-11] MEDS: LEVALBUTEROL 1.25 MG INH PRN (22:45)
[2016-07-12] MEDS ORDERED: FUROSEMIDE 40 MG/4 ML VIAL ONE (09:59)
[2016-07-12] MEDS ORDERED: ENOXAPARIN 120 MG/0.8 ML SYRINGE SUBQ ONE (10:09)
[2016-07-12] MEDS ORDERED: diltiaZEM INJ 5 MG/ML VIAL ONE ×2 (10:51→15:19)
[2016-07-12 16:15] LABS: BASOPHILS % (AUTO) 0.2 %; EOSINOPHILS % (AUTO) 0.1 %; HCT - HEMATOCRIT 25.6 % (42.0-52.0); HGB - HEMOGLOBIN 8.9 g/dL (14.0-18.0); LYMPHOCYTES # (AUTO) 0.1 10^3/uL (1.5-3.5); LYMPHOCYTES % (AUTO) 1.6 %; MEAN CORPUSCULAR HEMOGLOBIN 35.5 pg (27.0-31.0); MEAN CORPUSCULAR HGB CONC 34.6 g/dL (32.0-36.0); MEAN CORPUSCULAR VOLUME 102.8 fL (80.0-94.0); MEAN PLATELET VOLUME 9.2 fL (7.4-11.4); MONOCYTES # (AUTO) 0.4 10^3/uL (0.0-1.0); MONOCYTES % (AUTO) 5.4 %; NEUTROPHILS # (AUTO) 6.6 10^3/uL (1.5-6.6); NEUTROPHILS % (AUTO) 92.7 %; NUCLEATED RED BLOOD CELLS AUTO 0.1 /100WBC; RED BLOOD COUNT 2.49 10^6/uL (4.70-6.10); UNCORRECTED WHITE BLOOD COUNT 7.1 x10^3/uL; WHITE BLOOD COUNT 7.1 x10^3/uL (4.8-10.8)
[2016-07-12 16:17] LABS: BILIRUBIN,TOTAL 0.9 mg/dL (0.2-1.0); BUN - BLOOD UREA NITROGEN 14 mg/dL (6-20); CALCIUM 8.4 mg/dL (8.5-10.3); CARBON DIOXIDE - CO2 34 mmol/L (21-32); CHLORIDE 97 mmol/L (101-111); CREATININE 0.6 mg/dL (0.6-1.2); GFR - MDRD 129 (>89); GLUCOSE 156 mg/dL (70-100); MAGNESIUM 2.1 mg/dL (1.7-2.8); PHOSPHORUS 2.7 mg/dL (2.5-4.6); POTASSIUM 3.7 mmol/L (3.5-5.0); SODIUM 139 mmol/L (135-145); TOTAL PROTEIN 5.5 g/dL (6.7-8.2)
[2016-07-12] MEDS ORDERED: diltiaZEM INJ 5 MG/ML VIAL IVP PRN (16:27)
[2016-07-12] MEDS: MORPHINE 2 MG/ML SYRINGE IVP SCH ×8 (17:57→21:57)
[2016-07-12] MEDS: DIGOXIN 500 MCG/2 ML AMP IVP SCH (17:58)
[2016-07-12] MEDS: SODIUM CHLORIDE FLUSH 0.9% 10 ML SYRINGE IVP SCH ×3 (17:58→21:57)
[2016-07-12] MEDS: VANCOMYCIN INJ 1 GM in SODIUM CHLORIDE 0.9% 250 ML IV SCH ×3 (17:58→21:51)
[2016-07-12] MEDS: CHLORHEXIDINE GLUCONATE 15 ML UDC PO SCH ×2 (17:58→20:06)
[2016-07-12] MEDS: PANTOPRAZOLE 40 MG VIAL IVP SCH (17:58)
[2016-07-12] MEDS: PIPERACILLIN/TAZOBACTAM 3.375 GM in SODIUM CHLORIDE 0.9% MINIBAG 100 ML IV SCH ×4 (17:58→21:51)
[2016-07-12] MEDS: POLYETHYLENE GLYCOL 3350 17 GM PACKET PO SCH (17:58)
[2016-07-12] MEDS: methylPREDNISolone SUCCINATE 40 MG/ML VIAL IVP SCH ×4 (17:58→20:07)
[2016-07-12] MEDS: MULTIVITAMIN TABLET PO SCH (18:00)
[2016-07-12] MEDS: diltiaZEM CD 120 MG CAPSULE PO SCH (18:01)
[2016-07-12] MEDS: CHOLECALCIFEROL 1,000 UNIT TABLET PO SCH (18:01)
[2016-07-12] MEDS: ENOXAPARIN 40 MG/0.4 ML SYRINGE SUBQ SCH (18:01)
--- NOTE | 2016-07-12 18:55 | PROVIDER PROGRESS NOTE ---
Subjective - Prog Note Date Prog Note Date: 07/10/16 Prog Note Time: 10:00 - Subjective Pt reports feeling: Worse Subjective: This morning patient is very agitated and will not keep BiPAP mask on. Family is considering making him comfort care but we have decided if we can get him sedated then we will try to keep him on BiPAP for 3 hours then recheck his ABG. Patient is confused and visibly short of breath. He continues to have a cough but no fevers. Current Medications - Current Medications Current Medications: Active Medications Generic Name Dose Route Start Last Admin Trade Name Freq PRN Reason Stop Dose Admin Chlorhexidine Gluconate 15 ml 07/11/16 09:00 07/12/16 17:58 Peridex PO Not Given BID [facility] Digoxin 250 mcg 07/11/16 09:00 07/12/16 17:58 Lanoxin Inj IVP Not Given DAILY [facility] Diltiazem HCl 10 mg 07/12/16 16:27 Cardizem Inj IVP Q4H PRN HEARTRATE >120 Enoxaparin Sodium 105 mg 07/12/16 21:00 Lovenox SUBQ BID [facility] Guaifenesin 600 mg 07/11/16 21:30 Mucinex PO BID PRN Cold Symptons Haloperidol 1 mg 07/11/16 08:12 07/11/16 22:28 Haldol Inj IVP 1 mg Q4H PRN Administration Agitation Piperacillin Sod/Tazobactam 100 mls @ 200 mls/hr 07/09/16 22:00 07/12/16 18:01 Sod 3.375 gm/ Sodium Chloride IV Not Given Q6H [facility] Vancomycin HCl 1 gm/ Sodium 250 mls @ 167 mls/hr 07/11/16 14:00 07/12/16 18:00 Chloride IV Not Given Q8H [facility] Levalbuterol HCl 1.25 mg 07/09/16 18:37 07/11/16 22:45 Xopenex INH 1.25 mg Q4H PRN Administration Wheezing Lorazepam 1 mg 07/11/16 22:52 Ativan Inj IVP Q2HR PRN Anxiety Methylprednisolone 80 mg 07/11/16 09:00 07/12/16 18:01 Solu-Medrol (40mg Vial) IVP Not Given Q6H [facility] Metoprolol Tartrate 5 mg 07/10/16 21:12 07/11/16 20:53 Lopressor Inj IVP 5 mg Q6HR PRN Administration Tachycardia Morphine Sulfate 2 mg 07/09/16 17:11 07/11/16 06:23 Morphine IVP 2 mg Q2HR PRN Administration Pain 8 to 10 Morphine Sulfate 2 mg 07/11/16 10:00 07/12/16 18:02 Morphine IVP Not Given Q2HR [facility] Pantoprazole Sodium 40 mg 07/11/16 07:00 07/12/16 17:58 Protonix IVP Not Given QDAC [facility] Polyethylene Glycol 17 gm 07/10/16 09:00 07/12/16 17:58 Miralax PO Not Given DAILY [facility] Sodium Chloride 10 ml 07/09/16 17:11 07/11/16 11:20 Normal Saline Flush 0.9% IVP 20 ml PRN PRN Administration NEEDED PER PROVIDER ORDERS Sodium Chloride 10 ml 07/09/16 22:00 07/12/16 18:00 Normal Saline Flush 0.9% IVP Not Given Q8HR [facility] Multivitamin [Multivitamins] 1 each PO DAILY 04/17/14 Apixaban [Eliquis] 2.5 mg PO BID 07/09/16 Docusate Sodium 250Mg Capsule [Colace 250Mg Capsule] 250 mg PO BID 07/10/16 Lorazepam 1.25 mg PO QPM 07/10/16 Magnesium Oxide [Mag Ox] 400 mg PO QPM 07/10/16 Prednisone 20 mg PO DAILY 07/10/16 diltiaZEM CD [Cardizem Cd] 120 mg PO DAILY 07/10/16 Objective - Vital Signs/Intake & Output Reviewed Vital Signs: Yes Intake & Output: Intake & Output 07/09/16 07/10/16 07/11/16 07/12/16 23:59 23:59 23:59 23:59 Intake Total 1100 0605 694 Output Total 0528 7813 0826 Balance -64 -45 -7541 - Objective General Appearance: positive: Severe distress (Tachypneic, hypoxic, respiratory distress, agitated) Eyes Bilateral: positive: Normal inspection, PERRL, EOMI, No lid inflammation, Conjunctivae nml, No scleral icterus ENT: positive: ENT inspection nml, Pharynx nml, No signs of dehydration. negative: Purulent nasal drainage, Pharyngeal erythema, Oral lesions Neck: positive: Nml inspection, Thyroid nml, No JVD, Trachea midline. negative : Lymphadenopathy (R), Lymphadenopathy (L) Respiratory: positive: Chest non-tender, Wheezes, Rales, Rhonchi (Bilateral and coarse), Other (tachypnic) Cardiovascular: positive: No murmur, No gallop, Irregularly irregular Peripheral Pulses: 2+ Radial (R), 2+ Radial (L) Abdomen: positive: Non-tender, No organomegaly, Nml bowel sounds, No distention. negative: Guarding Skin: positive: No rash, Warm Extremities: positive: Non-tender, Full ROM, Pedal edema Neurologic/Psychiatric: positive: Disoriented to person, Disoriented to place, Disoriented to time, Other (agitated and confused) - Lab Results Fish Bones: 07/11/16 02:38 07/11/16 06:18 - Diagnostic Imaging Diagnostic Imaging Results: positive: Final report reviewed Assessment/Plan - Problem List (1) Acute respiratory failure with hypoxia and hypercapnia Impression: Patient presented with sepsis secondary to pneumonia. Patient worsened overnight and now on 15 L NRB but agitated and confused Will place on BiPAP and continue IV abx, IV steroids and give patient lasix 2. Sepsis. Patient presented with sepsis secondary to pneumonia WBC increasing Patient recently on chemo secondary to lymphoma of the lung On vanoc and zosyn Discontinue IVFs as patient appears overloaded 3. HCAP. Patient has received recent chemo ON Vanco and zosyn for HCAP and sepsis On 15L NRB with minimal reserve will need to be placed on BiPAP 4. Atrial Fibrillation with RVR Patient in A fib with RVR started on home dose of Diltiazem Likely getting volume overloaded secondary to a fib with RVR and IVFs Will give lasix Continue anticoagulation 5. Non Hodgkins Lymphoma. Will continue outpatient treatment after this hospitalization.
[2016-07-12 20:05] LABS: ABG HCO3 33.8 mmol/L (22.0-26.0); ABG PCO2 55 mmHg (34-45); ABG PH 7.41 (7.35-7.45); ABG PO2 76 mmHg (80-100); ABG TCO2 35.4 MMOL/L (21.0-29.0)
[2016-07-12 20:06] LABS: ABG BASE EXCESS 7.8 mmol/L (-2.0-3.0); ABG EXPIRATORY POS AIRWAY P 4 cmH2O; ABG INSPIRATORY POS AIRWAY P 12 cmH2O; ABG O2 DEVICE BiPAP; ABG OXYGEN SATURATION 95 % (94-98); ABG SITE OF DRAW LEFT RADIAL; ALLEN TEST POSITIVE
[2016-07-12] MEDS: LORazepam 2 MG/ML SYRINGE IVP PRN ×2 (20:07→21:56)
[2016-07-12] MEDS: ENOXAPARIN 120 MG/0.8 ML SYRINGE SUBQ SCH (21:50)
[2016-07-13] MEDS: MORPHINE 2 MG/ML SYRINGE IVP SCH ×13 (00:07→23:47)
[2016-07-13] MEDS: LORazepam 2 MG/ML SYRINGE IVP PRN ×8 (00:56→23:34)
[2016-07-13] MEDS: METOPROLOL 5 MG/5 ML VIAL IVP PRN ×3 (03:00→22:28)
[2016-07-13] MEDS: methylPREDNISolone SUCCINATE 40 MG/ML VIAL IVP SCH ×4 (03:00→20:01)
[2016-07-13] MEDS: PIPERACILLIN/TAZOBACTAM 3.375 GM in SODIUM CHLORIDE 0.9% MINIBAG 100 ML IV SCH ×4 (04:21→21:09)
[2016-07-13 04:24] LABS: BASOPHILS % (AUTO) 0.2 %; EOSINOPHILS % (AUTO) 0.2 %; HCT - HEMATOCRIT 27.1 % (42.0-52.0); HGB - HEMOGLOBIN 9.1 g/dL (14.0-18.0); LYMPHOCYTES # (AUTO) 0.1 10^3/uL (1.5-3.5); LYMPHOCYTES % (AUTO) 1.3 %; MEAN CORPUSCULAR HEMOGLOBIN 34.9 pg (27.0-31.0); MEAN CORPUSCULAR HGB CONC 33.7 g/dL (32.0-36.0); MEAN CORPUSCULAR VOLUME 103.7 fL (80.0-94.0); MEAN PLATELET VOLUME 9.1 fL (7.4-11.4); MONOCYTES # (AUTO) 0.6 10^3/uL (0.0-1.0); MONOCYTES % (AUTO) 8.5 %; NEUTROPHILS # (AUTO) 6.6 10^3/uL (1.5-6.6); NEUTROPHILS % (AUTO) 89.8 %; NUCLEATED RED BLOOD CELLS AUTO 0.1 /100WBC; RED BLOOD COUNT 2.61 10^6/uL (4.70-6.10); RED CELL DISTRIBUTION WIDTH 16.4 % (12.0-15.0); UNCORRECTED WHITE BLOOD COUNT 7.3 x10^3/uL; WHITE BLOOD COUNT 7.3 x10^3/uL (4.8-10.8)
[2016-07-13 04:37] LABS: BILIRUBIN,TOTAL 0.9 mg/dL (0.2-1.0); BUN - BLOOD UREA NITROGEN 20 mg/dL (6-20); CALCIUM 8.4 mg/dL (8.5-10.3); CARBON DIOXIDE - CO2 37 mmol/L (21-32); CHLORIDE 100 mmol/L (101-111); CREATININE 0.6 mg/dL (0.6-1.2); GFR - MDRD 129 (>89); GLUCOSE 147 mg/dL (70-100); MAGNESIUM 2.2 mg/dL (1.7-2.8); PHOSPHORUS 2.8 mg/dL (2.5-4.6); POTASSIUM 3.8 mmol/L (3.5-5.0); SODIUM 144 mmol/L (135-145); TOTAL PROTEIN 5.5 g/dL (6.7-8.2)
[2016-07-13 04:38] LABS: ABG BASE EXCESS 10.8 mmol/L (-2.0-3.0); ABG HCO3 37.5 mmol/L (22.0-26.0); ABG OXYGEN SATURATION 98 % (94-98); ABG PH 7.39 (7.35-7.45); ABG PO2 138 mmHg (80-100); ABG SITE OF DRAW LEFT RADIAL; ALLEN TEST POSITIVE
[2016-07-13 04:39] LABS: ABG EXPIRATORY POS AIRWAY P 4 cmH2O; ABG INSPIRATORY POS AIRWAY P 12 cmH2O; ABG MODE OF VENTILATION SYNCHRONOUS/TIMES; ABG O2 DEVICE BiPAP; ABG PCO2 63 mmHg (34-45); ABG PRESSURE SUPPORT VENT 8 cmH2O; ABG RESPIRATORY RATE 12 b/min; ABG SATURATION PULSE OXIMETRY% 100 %
[2016-07-13 04:40] LABS: ABG TCO2 39.5 MMOL/L (21.0-29.0)
--- NOTE | 2016-07-13 05:58 | XRAY Preliminary Report ---
Exam: XR Chest 1 View IMPRESSION: Severe bilateral airspace opacities are not significantly changed. [facility] SITE ID: [id number]
--- NOTE | 2016-07-13 06:01 | XRAY Report ---
EXAM: CHEST RADIOGRAPHY EXAM DATE: 07/13/2016 05:15 AM. CLINICAL HISTORY: Dyspnea. COMPARISON: 07/11/2016. TECHNIQUE: 1 view. FINDINGS: Lungs/Pleura: Severe bilateral airspace opacities are not significantly changed. No gross pneumothora x. Mediastinum: Within exam limitations, cardiomediastinal contour is normal. Other: Stable left central catheter. IMPRESSION: Severe bilateral airspace opacities are not significantly changed. [facility] Referring Provider Line: [phone] SITE ID: [id number]
[2016-07-13] MEDS: PANTOPRAZOLE 40 MG VIAL IVP SCH (06:16)
[2016-07-13] MEDS: SODIUM CHLORIDE FLUSH 0.9% 10 ML SYRINGE IVP SCH ×3 (06:16→21:53)
[2016-07-13] MEDS: VANCOMYCIN INJ 1 GM in SODIUM CHLORIDE 0.9% 250 ML IV SCH ×3 (06:17→21:53)
[2016-07-13] MEDS: CHLORHEXIDINE GLUCONATE 15 ML UDC PO SCH ×2 (08:19→20:03)
[2016-07-13] MEDS: DIGOXIN 500 MCG/2 ML AMP IVP SCH (08:19)
[2016-07-13] MEDS: ENOXAPARIN 120 MG/0.8 ML SYRINGE SUBQ SCH ×2 (08:20→20:03)
[2016-07-13] MEDS: POLYETHYLENE GLYCOL 3350 17 GM PACKET PO SCH (08:20)
[2016-07-13] MEDS: SODIUM CHLORIDE FLUSH 0.9% 10 ML SYRINGE IVP PRN ×2 (08:21→14:12)
[2016-07-13] MEDS: MORPHINE 2 MG/ML SYRINGE IVP PRN ×2 (09:06→11:16)
[2016-07-13] MEDS ORDERED: FUROSEMIDE 40 MG/4 ML VIAL IVP ONE (10:00)
[2016-07-13] MEDS ORDERED: LORazepam 2 MG/ML SYRINGE IVP STA (12:32)
[2016-07-13] MEDS ORDERED: diltiaZEM INJ 5 MG/ML VIAL IVP STA (12:32)
[2016-07-13] MEDS ORDERED: diltiaZEM INJ 5 MG/ML VIAL IVP ONE (12:32)
[2016-07-13] MEDS ORDERED: METOPROLOL 5 MG/5 ML VIAL IVP ONE (13:29)
[2016-07-13] MEDS ORDERED: METOPROLOL 5 MG/5 ML VIAL IVP STA (13:29)
--- NOTE | 2016-07-13 18:42 | PROVIDER PROGRESS NOTE ---
Subjective - Prog Note Date Prog Note Date: 07/13/16 Prog Note Time: 18:40 - Subjective Pt reports feeling: Worse Subjective: Patient became hypoxic overnight had to increase FIO2 back to 100% on BiPAP. Patient more agitated this am and more tachycardic. Still follows commands when he is less lethargic. No fevers overnight. Becomes hypoxic with minimal exertion. Current Medications - Current Medications Current Medications: Active Medications Generic Name Dose Route Start Last Admin Trade Name Freq PRN Reason Stop Dose Admin Chlorhexidine Gluconate 15 ml 07/11/16 09:00 07/13/16 08:19 Peridex PO 15 ml BID SANTIAGO Administration Digoxin 250 mcg 07/11/16 09:00 07/13/16 08:19 Lanoxin Inj IVP 250 mcg DAILY SANTIAGO Administration Diltiazem HCl 10 mg 07/12/16 16:27 07/13/16 11:14 Cardizem Inj IVP 10 mg Q4H PRN Administration HEARTRATE >120 Enoxaparin Sodium 105 mg 07/12/16 21:00 07/13/16 08:20 Lovenox SUBQ 105 mg BID SANTIAGO Administration Guaifenesin 600 mg 07/11/16 21:30 Mucinex PO BID PRN Cold Symptons Haloperidol 1 mg 07/11/16 08:12 07/11/16 22:28 Haldol Inj IVP 1 mg Q4H PRN Administration Agitation Piperacillin Sod/Tazobactam 100 mls @ 200 mls/hr 07/09/16 22:00 07/13/16 16:18 Sod 3.375 gm/ Sodium Chloride IV 200 mls/hr Q6H SANTIAGO Administration Vancomycin HCl 1 gm/ Sodium 250 mls @ 167 mls/hr 07/11/16 14:00 07/13/16 14:12 Chloride IV 167 mls/hr Q8H SANTIAGO Administration Levalbuterol HCl 1.25 mg 07/09/16 18:37 07/11/16 22:45 Xopenex INH 1.25 mg Q4H PRN Administration Wheezing Lorazepam 1 mg 07/11/16 22:52 07/13/16 11:07 Ativan Inj IVP 1 mg Q2HR PRN Administration Anxiety Methylprednisolone 80 mg 07/11/16 09:00 07/13/16 14:12 Solu-Medrol (40mg Vial) IVP 80 mg Q6H SANTIAGO Administration Metoprolol Tartrate 5 mg 07/10/16 21:12 07/13/16 09:03 Lopressor Inj IVP 5 mg Q6HR PRN Administration Tachycardia Morphine Sulfate 2 mg 07/09/16 17:11 07/13/16 11:16 Morphine IVP 2 mg Q2HR PRN Administration Pain 8 to 10 Morphine Sulfate 2 mg 07/11/16 10:00 07/13/16 18:18 Morphine IVP 2 mg Q2HR SANTIAGO Administration Pantoprazole Sodium 40 mg 07/11/16 07:00 07/13/16 06:16 Protonix IVP 40 mg QDAC SANTIAGO Administration Polyethylene Glycol 17 gm 07/10/16 09:00 07/13/16 08:20 Miralax PO Not Given DAILY SANTIAGO Sodium Chloride 10 ml 07/09/16 17:11 07/13/16 14:12 Normal Saline Flush 0.9% IVP 10 ml PRN PRN Administration NEEDED PER PROVIDER ORDERS Sodium Chloride 10 ml 07/09/16 22:00 07/13/16 14:12 Normal Saline Flush 0.9% IVP 10 ml Q8HR SANTIAGO Administration Multivitamin [Multivitamins] 1 each PO DAILY 04/17/14 Apixaban [Eliquis] 2.5 mg PO BID 07/09/16 Docusate Sodium 250Mg Capsule [Colace 250Mg Capsule] 250 mg PO BID 07/10/16 Lorazepam 1.25 mg PO QPM 07/10/16 Magnesium Oxide [Mag Ox] 400 mg PO QPM 07/10/16 Prednisone 20 mg PO DAILY 07/10/16 diltiaZEM CD [Cardizem Cd] 120 mg PO DAILY 07/10/16 Objective - Vital Signs/Intake & Output Reviewed Vital Signs: Yes Vital Signs: Vital Signs Temp Pulse Pulse Resp BP Pulse Ox 07/13/16 18:07 96 07/13/16 18:00 99 17 135/72 H 99 07/13/16 17:00 88 16 129/68 98 07/13/16 16:05 92 07/13/16 16:00 36.7 C 101 H 17 116/72 97 07/13/16 15:00 95 19 162/97 H 98 Intake & Output: Intake & Output 07/10/16 07/11/16 07/12/16 07/13/16 23:59 23:59 23:59 23:59 Intake Total 1695 907 217 7408 Output Total 5239 7269 185 1693 [facility]13 [phone] - Objective General Appearance: positive: Moderate distress (agitated, in respiratory distress. Hypoxic with minimal exertion.) Eyes Bilateral: positive: Normal inspection, PERRL, EOMI, No lid inflammation, Conjunctivae nml, No scleral icterus ENT: positive: ENT inspection nml, Pharynx nml, Dry mucous membranes Neck: positive: Nml inspection, Thyroid nml, No JVD, Trachea midline. negative : Thyromegaly, Lymphadenopathy (R), Lymphadenopathy (L) Respiratory: positive: Chest non-tender, Rales (bases), Rhonchi (bilateral), Other (diminished sounds upper lobes) Cardiovascular: positive: Irregularly irregular, Tachycardia, JVD present. negative: Systolic murmur, Diastolic murmur Peripheral Pulses: 2+ Radial (R), 2+ Radial (L) Abdomen: positive: Non-tender, No organomegaly, Nml bowel sounds, No distention. negative: Guarding, Rebound Back: positive: Nml inspection Skin: positive: No rash, Other (colder extremities) Extremities: positive: Non-tender, Full ROM, Pedal edema Neurologic/Psychiatric: positive: Other (sedated, following commands) - Lab Results Fish Bones: 07/13/16 04:15 07/13/16 04:15 Other Labs: Lab Results x24hrs 07/13/16 07/13/16 07/13/16 Range/Units 04:30 04:15 04:15 WBC (4.8-10.8) x10^3/uL RBC (4.70-6.10) 10^6/uL Hgb (14.0-18.0) g/dL Hct (42.0-52.0) % MCV (80.0-94.0) fL MCH (27.0-31.0) pg MCHC (32.0-36.0) g/dL RDW (12.0-15.0) % Plt Count (130-450) 10^3/uL MPV (7.4-11.4) fL Neut # (1.5-6.6) 10^3/uL Lymph # (1.5-3.5) 10^3/uL [place] # (0.0-1.0) 10^3/uL Eos # (0.0-0.7) 10^3/uL Baso # (0.0-0.1) 10^3/uL Absolute Nucleated RBC x10^3/uL Nucleated RBCs /100WBC Bld Gas Analysis Time 0430 Sample Site LEFT RADIAL ABG pH 7.39 (7.35-7.45) ABG pCO2 63 H* (34-45) mmHg ABG pO2 138 H (80-100) mmHg ABG HCO3 37.5 H (22.0-26.0) mmol/L ABG Total CO2 39.5 H* (21.0-29.0) MMOL/L ABG O2 Saturation 98 (94-98) % ABG Oximetry Spot Check 100 % ABG Base Excess 10.8 H (-2.0-3.0) mmol/L Luís Test POSITIVE Respiration Rate 12 b/min O2 Delivery Device BiPAP Vent Mode SYNCHRONOUS/TIMES FiO2 100.00 Pressure Support Vent 8 cmH2O EPAP 4 cmH2O IPAP 12 cmH2O Sodium (135-145) mmol/L Potassium (3.5-5.0) mmol/L Chloride (101-111) mmol/L Carbon Dioxide (21-32) mmol/L Anion Gap (6-13) BUN (6-20) mg/dL Creatinine (0.6-1.2) mg/dL Estimated GFR (MDRD) (>89) Glucose (70-100) mg/dL Lactic Acid 1.0 (0.5-2.2) mmol/L Calcium (8.5-10.3) mg/dL Ionized Calcium Phosphorus (2.5-4.6) mg/dL Magnesium (1.7-2.8) mg/dL Total Bilirubin (0.2-1.0) mg/dL AST (10-42) IU/L ALT (10-60) IU/L Alkaline Phosphatase (42-121) IU/L Total Protein (6.7-8.2) g/dL Albumin (3.2-5.5) g/dL Globulin (2.1-4.2) g/dL Albumin/Globulin Ratio (1.0-2.2) Last Dose Date Not Reportable Last Dose Time Not Reportable Vancomycin Trough (5.0-15.0) ug/mL Digoxin 0.3 ng/mL 07/13/16 07/13/16 07/12/16 Range/Units 04:15 04:15 13:30 WBC 7.3 (4.8-10.8) x10^3/uL RBC 2.61 L (4.70-6.10) 10^6/uL Hgb 9.1 L (14.0-18.0) g/dL Hct 27.1 L (42.0-52.0) % MCV 103.7 H (80.0-94.0) fL MCH 34.9 H (27.0-31.0) pg MCHC 33.7 (32.0-36.0) g/dL RDW 16.4 H (12.0-15.0) % Plt Count 107 L (130-450) 10^3/uL MPV 9.1 (7.4-11.4) fL Neut # 6.6 (1.5-6.6) 10^3/uL Lymph # 0.1 L (1.5-3.5) 10^3/uL [place] # 0.6 (0.0-1.0) 10^3/uL Eos # 0.0 (0.0-0.7) 10^3/uL Baso # 0.0 (0.0-0.1) 10^3/uL Absolute Nucleated RBC 0.01 x10^3/uL Nucleated RBCs 0.1 /100WBC Bld Gas Analysis Time Sample Site ABG pH (7.35-7.45) ABG pCO2 (34-45) mmHg ABG pO2 (80-100) mmHg ABG HCO3 (22.0-26.0) mmol/L ABG Total CO2 (21.0-29.0) MMOL/L ABG O2 Saturation (94-98) % ABG Oximetry Spot Check % ABG Base Excess (-2.0-3.0) mmol/L Luís Test Respiration Rate b/min O2 Delivery Device Vent Mode FiO2 Pressure Support Vent cmH2O EPAP cmH2O IPAP cmH2O Sodium 144 (135-145) mmol/L Potassium 3.8 (3.5-5.0) mmol/L Chloride 100 L (101-111) mmol/L Carbon Dioxide 37 H (21-32) mmol/L Anion Gap 7.0 (6-13) BUN 20 (6-20) mg/dL Creatinine 0.6 (0.6-1.2) mg/dL Estimated GFR (MDRD) 129 (>89) Glucose 147 H (70-100) mg/dL Lactic Acid (0.5-2.2) mmol/L Calcium 8.4 L (8.5-10.3) mg/dL Ionized Calcium NO Phosphorus 2.8 (2.5-4.6) mg/dL Magnesium 2.2 (1.7-2.8) mg/dL Total Bilirubin 0.9 (0.2-1.0) mg/dL AST 44 H (10-42) IU/L ALT 53 (10-60) IU/L Alkaline Phosphatase 103 (42-121) IU/L Total Protein 5.5 L (6.7-8.2) g/dL Albumin 2.8 L (3.2-5.5) g/dL Globulin 2.7 (2.1-4.2) g/dL Albumin/Globulin Ratio 1.0 (1.0-2.2) Last Dose Date UNKNOWN Last Dose Time UNKNOWN Vancomycin Trough 18.1 H (5.0-15.0) ug/mL Digoxin ng/mL 07/12/16 07/12/16 07/12/16 Range/Units 08:02 04:05 04:05 WBC (4.8-10.8) x10^3/uL RBC (4.70-6.10) 10^6/uL Hgb (14.0-18.0) g/dL Hct (42.0-52.0) % MCV (80.0-94.0) fL MCH (27.0-31.0) pg MCHC (32.0-36.0) g/dL RDW (12.0-15.0) % Plt Count (130-450) 10^3/uL MPV (7.4-11.4) fL Neut # (1.5-6.6) 10^3/uL Lymph # (1.5-3.5) 10^3/uL [place] # (0.0-1.0) 10^3/uL Eos # (0.0-0.7) 10^3/uL Baso # (0.0-0.1) 10^3/uL Absolute Nucleated RBC x10^3/uL Nucleated RBCs /100WBC Bld Gas Analysis Time 0802 Sample Site LEFT RADIAL ABG pH 7.41 (7.35-7.45) ABG pCO2 55 H (34-45) mmHg ABG pO2 76 L (80-100) mmHg ABG HCO3 33.8 H (22.0-26.0) mmol/L ABG Total CO2 35.4 H (21.0-29.0) MMOL/L ABG O2 Saturation 95 (94-98) % ABG Oximetry Spot Check % ABG Base Excess 7.8 H (-2.0-3.0) mmol/L Luís Test POSITIVE Respiration Rate b/min O2 Delivery Device BiPAP Vent Mode FiO2 80.00 Pressure Support Vent cmH2O EPAP 4 cmH2O IPAP 12 cmH2O Sodium 139 (135-145) mmol/L Potassium 3.7 (3.5-5.0) mmol/L Chloride 97 L (101-111) mmol/L Carbon Dioxide 34 H (21-32) mmol/L Anion Gap 8.0 (6-13) BUN 14 (6-20) mg/dL Creatinine 0.6 (0.6-1.2) mg/dL Estimated GFR (MDRD) 129 (>89) Glucose 156 H (70-100) mg/dL Lactic Acid 1.7 (0.5-2.2) mmol/L Calcium 8.4 L (8.5-10.3) mg/dL Ionized Calcium NO Phosphorus 2.7 (2.5-4.6) mg/dL Magnesium 2.1 (1.7-2.8) mg/dL Total Bilirubin 0.9 (0.2-1.0) mg/dL AST 38 (10-42) IU/L ALT 31 (10-60) IU/L Alkaline Phosphatase 103 (42-121) IU/L Total Protein 5.5 L (6.7-8.2) g/dL Albumin 2.8 L (3.2-5.5) g/dL Globulin 2.7 (2.1-4.2) g/dL Albumin/Globulin Ratio 1.0 (1.0-2.2) Last Dose Date Last Dose Time Vancomycin Trough (5.0-15.0) ug/mL Digoxin ng/mL 01/28/17 Range/Units 04:05 WBC 7.1 (4.8-10.8) x10^3/uL RBC 2.49 L (4.70-6.10) 10^6/uL Hgb 8.9 L (14.0-18.0) g/dL Hct 25.6 L (42.0-52.0) % MCV 102.8 H (80.0-94.0) fL MCH 35.5 H (27.0-31.0) pg MCHC 34.6 (32.0-36.0) g/dL RDW 16.0 H (12.0-15.0) % Plt Count 103 L (130-450) 10^3/uL MPV 9.2 (7.4-11.4) fL Neut # 6.6 (1.5-6.6) 10^3/uL Lymph # 0.1 L (1.5-3.5) 10^3/uL [place] # 0.4 (0.0-1.0) 10^3/uL Eos # 0.0 (0.0-0.7) 10^3/uL Baso # 0.0 (0.0-0.1) 10^3/uL Absolute Nucleated RBC 0.01 x10^3/uL Nucleated RBCs 0.1 /100WBC Bld Gas Analysis Time Sample Site ABG pH (7.35-7.45) ABG pCO2 (34-45) mmHg ABG pO2 (80-100) mmHg ABG HCO3 (22.0-26.0) mmol/L ABG Total CO2 (21.0-29.0) MMOL/L ABG O2 Saturation (94-98) % ABG Oximetry Spot Check % ABG Base Excess (-2.0-3.0) mmol/L Luís Test Respiration Rate b/min O2 Delivery Device Vent Mode FiO2 Pressure Support Vent cmH2O EPAP cmH2O IPAP cmH2O Sodium (135-145) mmol/L Potassium (3.5-5.0) mmol/L Chloride (101-111) mmol/L Carbon Dioxide (21-32) mmol/L Anion Gap (6-13) BUN (6-20) mg/dL Creatinine (0.6-1.2) mg/dL Estimated GFR (MDRD) (>89) Glucose (70-100) mg/dL Lactic Acid (0.5-2.2) mmol/L Calcium (8.5-10.3) mg/dL Ionized Calcium Phosphorus (2.5-4.6) mg/dL Magnesium (1.7-2.8) mg/dL Total Bilirubin (0.2-1.0) mg/dL AST (10-42) IU/L ALT (10-60) IU/L Alkaline Phosphatase (42-121) IU/L Total Protein (6.7-8.2) g/dL Albumin (3.2-5.5) g/dL Globulin (2.1-4.2) g/dL Albumin/Globulin Ratio (1.0-2.2) Last Dose Date Last Dose Time Vancomycin Trough (5.0-15.0) ug/mL Digoxin ng/mL - Diagnostic Imaging Diagnostic Imaging Results: positive: Final report reviewed Assessment/Plan - Problem List (1) Acute respiratory failure with hypoxia and hypercapnia Impression: Patient presented with sepsis secondary to pneumonia. Patient worsened this am with hypoxia ABG showing increasing PCO2 BiPAP increased to FIO2 of 100% increasing IPAP to 14 this am Will repeat ABG tomorrow morning Patient agitated in distress Talked to family about giving patient 1-2 more days on BiPAP and if not improving consider comfort measures Order thoracentesis with home of improving symptoms On abx, IV lasix and BiPAP 2. Sepsis. 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 HCAP. Patient has received recent chemo ON Vanco and zosyn for HCAP and sepsis day 4 On BiPAP with hypoxia this am and worsening PCO2 Increase FIO2 to 100 and IPAP to 14 4. Atrial Fibrillation with RVR Patient in A fib with RVR persistent NPO therefore on IV dilt prn Likely getting volume overloaded secondary to a fib with RVR and IVFs On IV lasix given dose this am Continue anticoagulation with lovenox as patient NPO 5. Non Hodgkins Lymphoma. Will continue outpatient treatment after this hospitalization.
[2016-07-13 19:42] LABS: BILIRUBIN,URINE NEGATIVE (NEGATIVE); PH,URINE 6.5 PH (5.0-7.5)
[2016-07-13 19:45] LABS: UA w/ MICROSCOPIC CHARGE YES
[2016-07-13 19:55] LABS: UR CULTURE IF IND NOT INDICATED; WBC,URINE 0-3 /HPF (0-3)
[2016-07-13] MEDS: HALOPERIDOL 5 MG/ML VIAL IVP PRN (23:46)
[2016-07-14] MEDS: LORazepam 2 MG/ML SYRINGE IVP PRN ×8 (00:57→13:55)
[2016-07-14] MEDS: MORPHINE 2 MG/ML SYRINGE IVP SCH ×6 (01:59→12:04)
[2016-07-14] MEDS: methylPREDNISolone SUCCINATE 40 MG/ML VIAL IVP SCH ×3 (02:58→15:18)
[2016-07-14] MEDS: PIPERACILLIN/TAZOBACTAM 3.375 GM in SODIUM CHLORIDE 0.9% MINIBAG 100 ML IV SCH ×3 (04:03→15:58)
[2016-07-14] MEDS: MORPHINE 2 MG/ML SYRINGE IVP PRN ×4 (05:18→13:00)
[2016-07-14] MEDS: HALOPERIDOL 5 MG/ML VIAL IVP PRN ×2 (05:18→11:23)
[2016-07-14] MEDS: METOPROLOL 5 MG/5 ML VIAL IVP PRN ×2 (05:22→11:28)
[2016-07-14] MEDS ORDERED: HALOPERIDOL 5 MG/ML VIAL IVP SCH (05:45)
[2016-07-14] MEDS: VANCOMYCIN INJ 1 GM in SODIUM CHLORIDE 0.9% 250 ML IV SCH ×2 (06:00→13:58)
[2016-07-14] MEDS: SODIUM CHLORIDE FLUSH 0.9% 10 ML SYRINGE IVP SCH ×2 (06:00→13:58)
[2016-07-14] MEDS: PANTOPRAZOLE 40 MG VIAL IVP SCH (06:01)
[2016-07-14 06:22] LABS: BASOPHILS % (AUTO) 0.3 %; EOSINOPHILS % (AUTO) 0.1 %; HCT - HEMATOCRIT 28.4 % (42.0-52.0); HGB - HEMOGLOBIN 9.4 g/dL (14.0-18.0); LYMPHOCYTES # (AUTO) 0.1 10^3/uL (1.5-3.5); MEAN CORPUSCULAR HEMOGLOBIN 34.7 pg (27.0-31.0); MEAN CORPUSCULAR HGB CONC 33.2 g/dL (32.0-36.0); MEAN CORPUSCULAR VOLUME 104.5 fL (80.0-94.0); MEAN PLATELET VOLUME 9.3 fL (7.4-11.4); MONOCYTES # (AUTO) 0.4 10^3/uL (0.0-1.0); MONOCYTES % (AUTO) 8.7 %; NEUTROPHILS # (AUTO) 4.4 10^3/uL (1.5-6.6); NEUTROPHILS % (AUTO) 89.9 %; NUCLEATED RED BLOOD CELLS AUTO 0.3 /100WBC; RED BLOOD COUNT 2.71 10^6/uL (4.70-6.10); RED CELL DISTRIBUTION WIDTH 16.9 % (12.0-15.0); UNCORRECTED WHITE BLOOD COUNT 4.9 x10^3/uL; WHITE BLOOD COUNT 4.9 x10^3/uL (4.8-10.8)
[2016-07-14 06:59] LABS: BILIRUBIN,TOTAL 1.1 mg/dL (0.2-1.0); BUN - BLOOD UREA NITROGEN 24 mg/dL (6-20); CALCIUM 8.6 mg/dL (8.5-10.3); CHLORIDE 101 mmol/L (101-111); CREATININE 0.6 mg/dL (0.6-1.2); GFR - MDRD 129 (>89); GLUCOSE 160 mg/dL (70-100); MAGNESIUM 2.4 mg/dL (1.7-2.8); PHOSPHORUS 2.8 mg/dL (2.5-4.6); POTASSIUM 3.6 mmol/L (3.5-5.0); SODIUM 148 mmol/L (135-145); TOTAL PROTEIN 5.7 g/dL (6.7-8.2)
[2016-07-14 07:02] LABS: CARBON DIOXIDE - CO2 40 mmol/L (21-32)
[2016-07-14 07:16] LABS: ABG PH 7.37 (7.35-7.45)
[2016-07-14 07:17] LABS: ABG BASE EXCESS 12.8 mmol/L (-2.0-3.0); ABG HCO3 40.4 mmol/L (22.0-26.0); ABG OXYGEN SATURATION 99 % (94-98); ALLEN TEST POSITIVE
[2016-07-14 07:18] LABS: ABG EXPIRATORY POS AIRWAY P 4 cmH2O; ABG INSPIRATORY POS AIRWAY P 14 cmH2O; ABG MODE OF VENTILATION SYNCHRONOUS/TIMES; ABG O2 DEVICE BiPAP; ABG PRESSURE SUPPORT VENT 10 cmH2O; ABG RESPIRATORY RATE 12 b/min; ABG SATURATION PULSE OXIMETRY% 100 %; ABG SITE OF DRAW LEFT RADIAL
[2016-07-14 07:21] LABS: ABG PCO2 71 mmHg (34-45)
[2016-07-14 07:22] LABS: ABG PO2 231 mmHg (80-100); ABG TCO2 42.6 MMOL/L (21.0-29.0)
[2016-07-14] MEDS: DIGOXIN 500 MCG/2 ML AMP IVP SCH (09:29)
[2016-07-14] MEDS: CHLORHEXIDINE GLUCONATE 15 ML UDC PO SCH (09:33)
[2016-07-14] MEDS: ENOXAPARIN 120 MG/0.8 ML SYRINGE SUBQ SCH (09:33)
[2016-07-14] MEDS: POLYETHYLENE GLYCOL 3350 17 GM PACKET PO SCH (09:34)
[2016-07-14] MEDS: APIXABAN 2.5 MG PO SCH (10:34)
[2016-07-14] MEDS: SODIUM CHLORIDE FLUSH 0.9% 10 ML SYRINGE IVP PRN (11:28)
[2016-07-14] MEDS: MORPHINE SOL 10 MG/0.5 ML SYRINGE PO PRN ×9 (12:00→18:13)
[2016-07-14 12:04] VITALS: BP 131/71
[2016-07-14] MEDS ORDERED: MORPHINE PCA 50 MG IV PRN (13:23)
[2016-07-14] MEDS: ATROPINE 1% SL PRN ×2 (13:50→15:26)
--- NOTE | 2016-07-14 13:58 | PROVIDER PROGRESS NOTE ---
Hospitalist Cross-cover Note - Cross-Cover Note Cross-Cover Note: Patients ABG worsening this am, patient not improving after several days of BiPAP. Decision made by family to discontinue the BiPAP and make the patient comfort care.
[2016-07-14] MEDS ORDERED: SCOPOLAMINE PATCH TOP SCH (14:00)
[2016-07-14] MEDS ORDERED: A & D OINTMENT 5 GM PACKET TOP ONE (15:16)
--- NOTE | 2016-07-14 18:13 | PROVIDER PROGRESS NOTE ---
Subjective - Prog Note Date Prog Note Date: 07/14/16 Prog Note Time: 18:11 - Subjective Pt reports feeling: Worse Subjective: Patient with worsening ABG this morning. He was desaturating with any minimal exertion and is on 100% FIO2 on BiPAP. Afebrile, responsive but sedated. Current Medications - Current Medications Current Medications: Active Medications Generic Name Dose Route Start Last Admin Trade Name Freq PRN Reason Stop Dose Admin Atropine Sulfate 1 - 4 drops 07/14/16 13:23 07/14/16 15:26 Isopto Atropine 1% Ophth Drops SL 2 drops Q2H PRN Administration Excessive secretions Chlorhexidine Gluconate 15 ml 07/11/16 09:00 07/14/16 09:33 Peridex PO Not Given BID SANTIAGO Digoxin 250 mcg 07/11/16 09:00 07/14/16 09:29 Lanoxin Inj IVP 250 mcg DAILY SANTIAGO Administration Enoxaparin Sodium 105 mg 07/12/16 21:00 07/14/16 09:33 Lovenox SUBQ Not Given BID SANTIAGO Guaifenesin 600 mg 07/11/16 21:30 Mucinex PO BID PRN Cold Symptons Haloperidol 1 mg 07/11/16 08:12 07/14/16 11:23 Haldol Inj IVP 1 mg Q4H PRN Administration Agitation Piperacillin Sod/Tazobactam 100 mls @ 200 mls/hr 07/09/16 22:00 07/14/16 15:58 Sod 3.375 gm/ Sodium Chloride IV Not Given Q6H SANTIAGO Vancomycin HCl 1 gm/ Sodium 250 mls @ 167 mls/hr 07/11/16 14:00 07/14/16 13:58 Chloride IV Not Given Q8H SANTIAGO Levalbuterol HCl 1.25 mg 07/09/16 18:37 07/11/16 22:45 Xopenex INH 1.25 mg Q4H PRN Administration Wheezing Lorazepam 1 mg 07/13/16 22:33 07/14/16 13:55 Ativan Inj IVP 1 mg Q1HR PRN Administration Anxiety Methylprednisolone 80 mg 07/11/16 09:00 07/14/16 15:18 Solu-Medrol (40mg Vial) IVP Not Given Q6H [facility] Metoprolol Tartrate 5 mg 07/10/16 21:12 07/14/16 11:28 Lopressor Inj IVP 5 mg Q6HR PRN Administration Tachycardia Morphine Sulfate 2 mg 07/09/16 17:11 07/14/16 13:00 Morphine IVP 2 mg Q2HR PRN Administration Pain 8 to 10 Morphine Sulfate 10 mg 07/14/16 12:08 07/14/16 17:38 Roxanol PO 10 mg Q15M PRN Administration PAIN Morphine Sulfate/Sodium Chloride 0 mg 07/14/16 13:23 07/14/16 13:48 Morphine Family Consultant (Use Family Consultant Order Set) IV 50 mg OYSTER CULLER PRN Administration PAIN Protocol Pantoprazole Sodium 40 mg 07/11/16 07:00 07/14/16 06:01 Protonix IVP 40 mg QDAC SANTIAGO Administration Polyethylene Glycol 17 gm 07/10/16 09:00 07/14/16 09:34 Miralax PO Not Given DAILY SANTIAGO Scopolamine HBr 1 patch 07/14/16 14:00 07/14/16 14:06 Transderm-Scop TOP 1 patch Q3D SANTIAGO Administration Sodium Chloride 10 ml 07/09/16 17:11 07/14/16 11:28 Normal Saline Flush 0.9% IVP 10 ml PRN PRN Administration NEEDED PER PROVIDER ORDERS Sodium Chloride 10 ml 07/09/16 22:00 07/14/16 13:58 Normal Saline Flush 0.9% IVP 10 ml Q8HR SANTIAGO Administration Multivitamin [Multivitamins] 1 each PO DAILY 04/17/14 Apixaban [Eliquis] 2.5 mg PO BID 07/09/16 Docusate Sodium 250Mg Capsule [Colace 250Mg Capsule] 250 mg PO BID 07/10/16 Lorazepam 1.25 mg PO QPM 07/10/16 Magnesium Oxide [Mag Ox] 400 mg PO QPM 07/10/16 Prednisone 20 mg PO DAILY 07/10/16 diltiaZEM CD [Cardizem Cd] 120 mg PO DAILY 07/10/16 Objective - Vital Signs/Intake & Output Intake & Output: Intake & Output 07/11/16 07/12/16 07/13/16 07/14/16 23:59 23:59 23:59 23:59 Intake Total 030 709 9299 983 Output Total 3099 185 1830 775 Balance -2405 232 -118 208 - Objective General Appearance: positive: Lethargic, Other (Sedated on BiPAP) Eyes Bilateral: positive: Normal inspection, PERRL, EOMI, No lid inflammation, Conjunctivae nml, No scleral icterus ENT: positive: ENT inspection nml, Pharynx nml, Dry mucous membranes. negative : Purulent nasal drainage, Pharyngeal erythema, Oral lesions Neck: positive: Nml inspection, Thyroid nml, No JVD, Trachea midline. negative : Thyromegaly, Lymphadenopathy (R), Lymphadenopathy (L) Respiratory: positive: Chest non-tender, Wheezes, Rales (Bibasilar), Rhonchi ( diffuse) Cardiovascular: positive: Irregularly irregular, Tachycardia. negative: Systolic murmur, Diastolic murmur Peripheral Pulses: 2+ Radial (R), 2+ Radial (L) Abdomen: positive: Non-tender, No organomegaly, Nml bowel sounds, No distention. negative: Guarding, Rebound, Hepatomegaly Back: positive: Nml inspection Skin: positive: No rash, Warm, Cyanosis Extremities: positive: Non-tender, Full ROM, Nml appearance, Pedal edema Neurologic/Psychiatric: positive: Other (Lethargic, sedated) - Lab Results Fish Bones: 07/14/16 06:15 07/14/16 06:15 Other Labs: Lab Results x24hrs 07/14/16 07/14/16 07/14/16 Range/Units 07:05 06:15 06:15 WBC (4.8-10.8) x10^3/uL RBC (4.70-6.10) 10^6/uL Hgb (14.0-18.0) g/dL Hct (42.0-52.0) % MCV (80.0-94.0) fL MCH (27.0-31.0) pg MCHC (32.0-36.0) g/dL RDW (12.0-15.0) % Plt Count (130-450) 10^3/uL MPV (7.4-11.4) fL Neut # (1.5-6.6) 10^3/uL Lymph # (1.5-3.5) 10^3/uL [place] # (0.0-1.0) 10^3/uL Eos # (0.0-0.7) 10^3/uL Baso # (0.0-0.1) 10^3/uL Absolute Nucleated RBC x10^3/uL Nucleated RBCs /100WBC Bld Gas Analysis Time 0712 Sample Site LEFT RADIAL ABG pH 7.37 (7.35-7.45) ABG pCO2 71 H* (34-45) mmHg ABG pO2 231 H* (80-100) mmHg ABG HCO3 40.4 H (22.0-26.0) mmol/L ABG Total CO2 42.6 H* (21.0-29.0) MMOL/L ABG O2 Saturation 99 H (94-98) % ABG Oximetry Spot Check 100 % ABG Base Excess 12.8 H (-2.0-3.0) mmol/L Luís Test POSITIVE Respiration Rate 12 b/min O2 Delivery Device BiPAP Vent Mode SYNCHRONOUS/TIMES FiO2 100.00 Pressure Support Vent 10 cmH2O EPAP 4 cmH2O IPAP 14 cmH2O Sodium 148 H (135-145) mmol/L Potassium 3.6 (3.5-5.0) mmol/L Chloride 101 (101-111) mmol/L Carbon Dioxide 40 H* (21-32) mmol/L Anion Gap 7.0 (6-13) BUN 24 H (6-20) mg/dL Creatinine 0.6 (0.6-1.2) mg/dL Estimated GFR (MDRD) 129 (>89) Glucose 160 H (70-100) mg/dL Lactic Acid 1.2 (0.5-2.2) mmol/L Calcium 8.6 (8.5-10.3) mg/dL Ionized Calcium NO Phosphorus 2.8 (2.5-4.6) mg/dL Magnesium 2.4 (1.7-2.8) mg/dL Total Bilirubin 1.1 H (0.2-1.0) mg/dL AST 65 H (10-42) IU/L ALT 112 H (10-60) IU/L Alkaline Phosphatase 110 (42-121) IU/L Total Protein 5.7 L (6.7-8.2) g/dL Albumin 2.9 L (3.2-5.5) g/dL Globulin 2.8 (2.1-4.2) g/dL Albumin/Globulin Ratio 1.0 (1.0-2.2) Urine Color Urine Clarity (CLEAR) Urine pH (5.0-7.5) PH Ur Specific [place] (1.002-1.030) Urine Protein (NEGATIVE) mg/dL Urine Glucose (UA) (NEGATIVE) mg/dL Urine Ketones (NEGATIVE) mg/dL Urine Occult Blood (NEGATIVE) Urine Nitrite (NEGATIVE) Urine Bilirubin (NEGATIVE) Urine Urobilinogen (NORMAL) E.U./dL Ur Leukocyte Esterase (NEGATIVE) Urine RBC (0-5) /HPF Urine WBC (0-3) /HPF Ur Squamous Epith Cells (<= Few) Amorphous Sediment /LPF Urine Bacteria (None Seen) /HPF Ur Microscopic Review Urine Culture Comments 07/14/16 07/13/16 Range/Units 06:15 04:15 WBC 4.9 (4.8-10.8) x10^3/uL RBC 2.71 L (4.70-6.10) 10^6/uL Hgb 9.4 L (14.0-18.0) g/dL Hct 28.4 L (42.0-52.0) % MCV 104.5 H (80.0-94.0) fL MCH 34.7 H (27.0-31.0) pg MCHC 33.2 (32.0-36.0) g/dL RDW 16.9 H (12.0-15.0) % Plt Count 81 L (130-450) 10^3/uL MPV 9.3 (7.4-11.4) fL Neut # 4.4 (1.5-6.6) 10^3/uL Lymph # 0.1 L (1.5-3.5) 10^3/uL [place] # 0.4 (0.0-1.0) 10^3/uL Eos # 0.0 (0.0-0.7) 10^3/uL Baso # 0.0 (0.0-0.1) 10^3/uL Absolute Nucleated RBC 0.01 x10^3/uL Nucleated RBCs 0.3 /100WBC Bld Gas Analysis Time Sample Site ABG pH (7.35-7.45) ABG pCO2 (34-45) mmHg ABG pO2 (80-100) mmHg ABG HCO3 (22.0-26.0) mmol/L ABG Total CO2 (21.0-29.0) MMOL/L ABG O2 Saturation (94-98) % ABG Oximetry Spot Check % ABG Base Excess (-2.0-3.0) mmol/L Luís Test Respiration Rate b/min O2 Delivery Device Vent Mode FiO2 Pressure Support Vent cmH2O EPAP cmH2O IPAP cmH2O Sodium (135-145) mmol/L Potassium (3.5-5.0) mmol/L Chloride (101-111) mmol/L Carbon Dioxide (21-32) mmol/L Anion Gap (6-13) BUN (6-20) mg/dL Creatinine (0.6-1.2) mg/dL Estimated GFR (MDRD) (>89) Glucose (70-100) mg/dL Lactic Acid (0.5-2.2) mmol/L Calcium (8.5-10.3) mg/dL Ionized Calcium Phosphorus (2.5-4.6) mg/dL Magnesium (1.7-2.8) mg/dL Total Bilirubin (0.2-1.0) mg/dL AST (10-42) IU/L ALT (10-60) IU/L Alkaline Phosphatase (42-121) IU/L Total Protein (6.7-8.2) g/dL Albumin (3.2-5.5) g/dL Globulin (2.1-4.2) g/dL Albumin/Globulin Ratio (1.0-2.2) Urine Color YELLOW Urine Clarity CLOUDY (CLEAR) Urine pH 6.5 (5.0-7.5) PH Ur Specific [place] 1.025 (1.002-1.030) Urine Protein TRACE (NEGATIVE) mg/dL Urine Glucose (UA) NEGATIVE (NEGATIVE) mg/dL Urine Ketones TRACE (NEGATIVE) mg/dL Urine Occult Blood LARGE H (NEGATIVE) Urine Nitrite NEGATIVE (NEGATIVE) Urine Bilirubin NEGATIVE (NEGATIVE) Urine Urobilinogen 0.2 (NORMAL) (NORMAL) E.U./dL Ur Leukocyte Esterase NEGATIVE (NEGATIVE) Urine RBC TNTC H (0-5) /HPF Urine WBC 0-3 (0-3) /HPF Ur Squamous Epith Cells NONE SEEN (<= Few) Amorphous Sediment Marked /LPF Urine Bacteria Few (None Seen) /HPF Ur Microscopic Review INDICATED Urine Culture Comments NOT INDICATED - Diagnostic Imaging Diagnostic Imaging Results: positive: Final report reviewed Assessment/Plan - Problem List (1) Acute respiratory failure with hypoxia and hypercapnia Impression: (1) Acute respiratory failure with hypoxia and hypercapnia Impression: Patient presented with sepsis secondary to pneumonia. Patient worsened this am with hypoxia ABG showed worsening PCO2 this am Patient desaturates with minimal exertion Patient is not improving Family decided to make patient comfort today Withdrew BiPAP On morphine and ativan Morphine drip Will likely pass away with 24 hours 2. Sepsis. 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 HCAP. Patient has received recent chemo ON Vanco and zosyn for HCAP and sepsis day 5 Disontinued abx and BiPAP on comfort care 4. Atrial Fibrillation with RVR Patient in A fib with RVR persistent NPO therefore on IV dilt prn Likely getting volume overloaded secondary to a fib with RVR and IVFs Discontinue lasix and dilt Comfort care
--- NOTE | 2016-07-14 21:34 | PROVIDER PROGRESS NOTE ---
[employer] Worker Apprentice Note - [employer] Worker Apprentice Note [employer] Worker Apprentice Note: 07/14/16 19:29 Mr. Reddy had a turn for the worse yesterday and today family felt comfort measures appropriate. He at 19:20 and I examined him. Found no pulse, no pressure and he was released to the home. Family at the bedside.
--- NOTE | 2016-07-15 09:31 | DISCHARGE SUMMARY ---
DATE OF ADMISSION: 07/09/2016 DATE OF DISCHARGE: 07/14/2016 PRIMARY CARE PHYSICIAN: Job Love MD. DISCHARGE DIAGNOSES 1. Sepsis. 2. Pneumonia. 3. Acute respiratory failure with hypoxia and hypercapnia. 4. Atrial fibrillation with rapid ventricular response. 5. Acute diastolic congestive heart failure. 6. Large cell lymphoma, extranodal. 7. Delirium due to other conditions, acute. 8. Pleural effusion with infection. PRINCIPAL PROCEDURES Three chest x-rays showing significant right lung pneumonia, progressing to left lung pneumonia and a right pleural effusion. Echocardiogram with overall left ventricular systolic function normal and ejection fraction of 65-70% , mild aortic regurgitation, mild to moderate tricuspid regurgitation, mildly abnormal right heart pr essures, and an aortic root and ascending aorta that were dilated to 4.1 cm. HOSPITAL COURSE: The patient is an 81-year-old man who was diagnosed with large cell lymphoma after 2 years of abnormal chest x-ray. He has completed split dose R-CHOP dosing, fourth cycle this last thu and presented as shortness of breath, cough, weakness, and was found to have an almost completely opacified right lung with pleural effusion and meeting sepsis criteria. He was placed on broad spectrum antibiotic coverage, and in spite of that continued to deteriorate wi th regard to his respiratory status and was placed in the ICU and put on BiPAP. Long discussions were held with he and the family over consecutive days about his resuscitative wishes. Although he wanted to be DO NOT RESUSCITATE, he felt that he wanted to consider the possibility of intubation. I spent a long day with them discussing his lymphoma, his interstitial lung disease, what that meant in real pathophysiology terms, and why he could not get enough oxygenation. After listening to that, he stron gly felt that he was not a candidate for intubation and wished to be DO NOT INTUBATE. The patient continued to deteriorate. We did an echocardiogram seeing if he had systolic congestive h eart failure. None was present. He did have mild pulmonary hypertension. He had a pleural effusion th at we could not do a thoracentesis because of his unstable status throughout his stay. He developed s evere delirium from his acute respiratory failure with hypoxia and hypercapnia and needed to be sedat ed with Haldol and Ativan. It was noted that as long as he was sedated, his respiratory status would remain stable, even on 100% FIO2 and BiPAP, but once he became more alert and agitated, he would desa turate immediately. In spite of aggressive measures in the unit, short of intubating him, he remained only stable for a day or 2, and then slowly started to insidiously deteriorate with regards to the h ypoxemia in spite of maximum BiPAP support, maximum sedative efforts, change in antibiotic therapy, j udicious diuresis, and control of his heart rate. In spite of having an atrial fibrillation RVR rate that was now controlled, 100% FIO2, normal blood pressure and good urine output, our measures were no t met with success. After a long discussion, the family felt that he be candidate for comfort measure s. As such, we took off BiPAP, made him comfort measures on the morning of 07/14, and he at 1 929 with family at the bedside. JOB #: [id number] EXT JOB #:[id number]
== END 2016-07-14 19:29 | disposition expired | DRG 871 ==
LOC: ED 16:09 → MS 17:11 → ICU 21:55
PROVIDERS: ADMIT Nurse Practitioner Family; ATTEND Specialist
DX: A41.9 Sepsis, unspecified organism (principal); J18.9 Pneumonia, unspecified organism; R09.02 Hypoxemia; J96.01 Acute respiratory failure with hypoxia; C83.30 Diffuse large B-cell lymphoma, unspecified site; J96.02 Acute respiratory failure with hypercapnia; I50.31 Acute diastolic (congestive) heart failure; Z79.899 Other long term (current) drug therapy; R65.21 Severe sepsis with septic shock; C83.39 Diffuse large B-cell lymphoma, extranodal and solid organ sites; J90 Pleural effusion, not elsewhere classified; J84.10 Pulmonary fibrosis, unspecified; I11.0 Hypertensive heart disease with heart failure; E87.70 Fluid overload, unspecified; I48.91 Unspecified atrial fibrillation; I27.2 Other secondary pulmonary hypertension; I77.819 Aortic ectasia, unspecified site; Z66 Do not resuscitate; Y95 Nosocomial condition; Z78.1 Physical restraint status; Z95.828 Presence of other vascular implants and grafts; Z92.21 Personal history of antineoplastic chemotherapy; Z79.52 Long term (current) use of systemic steroids; Z79.01 Long term (current) use of anticoagulants
CPT/HCPCS: 36415; 36600; 71010; 71020; 80048; 80053; 80162; 80202; 81001; 81003; 82330; 82803; 83605; 83690; 83735; 83880; 84100; 85025; 85610; 87040; 87086; 87150; 87275; 87276; 93306; 94640; 94660; 94664; 96361; 96374; 96375; 99283; 99284; 99285